=== PATIENT | female | born 1955 | race Caucasian/White ===

== ENCOUNTER 2019-05-08 09:48 | Outpatient (CLI) | payer MEDICARE, OTHER, SELFPAY ==
[2019-05-08 10:10] VITALS: BP 137/80; PULSE 79; RESP 16; TEMP 36.6; O2SAT 99
[2019-05-08] MEDS: denosumab 60 mg SDV SUBCUT (10:22)
[2019-05-08 10:27] VITALS: BP 136/81; PULSE 75; RESP 16; TEMP 36.6
== END 2019-05-08 09:49 | disposition home or self-care (01) ==
LOC: RHEOACUTE 09:50
PROVIDERS: Family Provider Internal Medicine; PCP Internal Medicine; Visit Provider Internal Medicine Rheumatology
DX: M81.0 Age-related osteoporosis without current pathological fracture (principal)
CPT/HCPCS: 96372; J0897

== ENCOUNTER → 2019-10-24 09:02 | Outpatient (BNVA) | payer MEDICARE, OTHER, SELFPAY | PROVIDERS: Family Provider Internal Medicine; PCP Internal Medicine; Visit Provider Internal Medicine Rheumatology | DX: L40.0 Psoriasis vulgaris (principal); M81.0 Age-related osteoporosis without current pathological fracture; Z79.899 Other long term (current) drug therapy; F17.210 Nicotine dependence, cigarettes, uncomplicated | CPT/HCPCS: 99203 ==

== ENCOUNTER 2019-11-07 12:45 | Outpatient (CLI) | payer MEDICARE, OTHER, SELFPAY ==
[2019-11-07 13:13] VITALS: BP 141/71; PULSE 86; RESP 16; TEMP 36.5; O2SAT 97
[2019-11-07] MEDS: denosumab 60 mg SDV (13:23)
[2019-11-07 13:30] VITALS: BP 136/88; PULSE 77; RESP 16; TEMP 36.4
== END 2019-11-07 12:46 | disposition home or self-care (01) ==
LOC: RHEOACUTE 12:46
PROVIDERS: Family Provider Internal Medicine; PCP Internal Medicine; Visit Provider Internal Medicine Rheumatology
DX: M81.0 Age-related osteoporosis without current pathological fracture (principal)
CPT/HCPCS: 96372; J0897

== ENCOUNTER → 2019-12-24 10:31 | Outpatient (BNVA) | payer MEDICARE, OTHER, SELFPAY | PROVIDERS: Family Provider Internal Medicine; PCP Internal Medicine; Referring Provider Internal Medicine Rheumatology; Visit Provider Dermatology | DX: L40.0 Psoriasis vulgaris (principal); F17.210 Nicotine dependence, cigarettes, uncomplicated | CPT/HCPCS: 99202; 99203 ==

== ENCOUNTER 2020-01-11 09:31 | Outpatient (CLI) | payer MEDICARE, OTHER, SELFPAY ==
--- NOTE | 2020-01-11 09:37 | MM_ITS ---
WS: [id number] BILATERAL SCREENING DIGITAL MAMMOGRAM WITH CAD HISTORY: SCREENING COMPARISON: 12/13/2017 Bilateral CC and MLO views submitted. Computer aided detection analyzed. Breast composition: There are scattered areas of fibroglandular density. No suspicious masses, microc alcifications or architectural distortion. Benign asymmetries and vascular calcifications. MM/[place] [id number] IMPRESSION: BI-RADS: 2-Benign FOLLOW UP: 1 Year Follow-up
== END 2020-01-11 09:32 | disposition home or self-care (01) ==
LOC: RADSHAW 09:35
PROVIDERS: PCP Internal Medicine; Visit Provider Internal Medicine
DX: Z12.31 Encounter for screening mammogram for malignant neoplasm of breast (principal)
CPT/HCPCS: 77067

== ENCOUNTER 2020-03-13 12:34 | Outpatient (CLI) | payer MEDICARE, OTHER, SELFPAY ==
--- NOTE | 2020-03-13 12:45 | USCV_ITS ---
Sabrina Bates Age: 64 Gender: F : 1955 Exam Date: 03/13/2020 12:33 Ordering Phys: Marvin Jordan DO Technologist: Angela Mireles Exam Location: [facility] – [place] Indication: REDUCED PULSES RIGHT LEFT Brachial 153.00 mmHg Brachial 138.00 mmHg Pressure (mmHg) Waveform Pressure (mmHg) Waveform 52.00 LIBRARY MEDIA SPECIALIST 42.00 62.00 DPA 44.00 0.41 Ankle/Brachial Index 0.29 FINDINGS UNABLE TO OBTAIN DOPPLER IN THE FIRST TOE BILATERALLY Resting KARIE of 0.41 on the right side and 0.29 on the left side CONCLUSIONS Abnormal resting ABIs bilaterally, suggestive of severe obstructive arterial disease, possibly multisegmental Dr Aysha Camacho MD FACC (Electronically Signed) Final Date: 14 March 2020 19:41 S
--- NOTE | 2020-03-13 12:45 | USCV_ITS ---
Sabrina Bates Age: 64 Gender: F : 1955 Exam Date: 03/13/2020 13:20 Ordering Phys: Marvin Jordan DO Technologist: Angela Mireles Exam Location: [facility] – [place] Indication: WEAKNESS AND MURMUR BP: 158 / 78 HR: 61 Rhythm: Sinus Technical Quality: Adequate MEASUREMENTS (Male / Female) Normal Values 2D ECHO LV Diastolic Diameter PLAX 2.9 cm 4.2 - 5.9 / 3.9 - 5.3 cm LV Systolic Diameter PLAX 2.1 cm LV Chamber Size 2.8 cm IVS Diastolic Thickness 1.7 cm 0.6 - 1.0 / 0.6 - 0.9 cm IVS Systolic Thickness 1.6 cm LVPW Diastolic Thickness 2.5 cm 0.6 - 1.0 / 0.6 - 0.9 cm LVPW Systolic Thickness 1.9 cm RV Chamber Size 3.1 cm LVOT Diameter 2.0 cm LV Ejection Fraction 2D Teich 58.6 % LV Ejection Fraction MOD 2C 61.9 % LV Ejection Fraction 2C AL 64.3 % LA Diameter 2.7 cm LA Width 3.3 cm LA Height 4.0 cm RA Width 3.8 cm RA Height 3.6 cm Aorta at Sinotubular Diameter 2.6 cm M-MODE LV Diastolic Diameter MM 3.8 cm 4.2 - 5.9 / 3.9 - 5.3 cm LV Systolic Diameter MM 2.7 cm LV Ejection Fraction MM Teich 57.4 % IVS Diastolic Thickness MM 1.0 cm 0.6 - 1.0 / 0.6 - 0.9 cm IVS Systolic Thickness MM 1.2 cm LVPW Diastolic Thickness MM 1.4 cm 0.6 - 1.0 / 0.6 - 0.9 cm LVPW Systolic Thickness MM 1.6 cm RV Diastolic Diameter MM 1.1 cm Aortic Annulus Diameter 3.0 cm LA Ao Ratio MM 1.0 MV E Point Septal Separation 5.1 cm DOPPLER AV Peak Velocity 214.0 cm/s LVOT Peak Velocity 154.8 cm/s AV Area Cont Eq vti 2.6 cm squared AV Area Cont Eq pk 2.3 cm squared MV Area PHT 2.8 cm squared Mitral E to A Ratio 1.1 MV E' Velocity 55.5 cm/s Mitral E to MV E' Ratio 7.6 Mitral E to LV E' Lateral Ratio 7.0 Mitral E to LV E' Septal Ratio 8.3 TR Peak Velocity 165.0 cm/s TR Peak Gradient 10.9 mmHg TR Mean Velocity 105.1 cm/s TR Mean Gradient 5.5 mmHg TR Velocity Time Integral 39.9 cm TV Peak E Velocity 67.0 cm/s Right Atrial Pressure 3.0 mmHg Pulmonary Artery Systolic Pressu 13.9 mmHg PV Peak Velocity 57.0 cm/s RV Acceleration Time 0.1 s RV Ejection Time 0.3 s RV AcT/ET 0.4 FINDINGS Left Ventricle Normal left ventricular size and systolic function, EF 62 %. Mild left ventricular hypertrophy. Right Ventricle The right ventricle is normal in size and function. Right Atrium The right atrium is normal in size. Left Atrium The left atrium is normal in size. Mitral Valve Trace mitral valve regurgitation. Aortic Valve The noncoronary cusp of the aortic arch appears to be thickened with limited mobility Tricuspid Valve No gross abnormalities noted Pulmonic Valve No gross abnormalities noted Pericardium Normal pericardium without effusion. Aorta Normal ascending aorta dimension. CONCLUSIONS Normal left ventricular size and systolic function, EF 62 %. Mild left ventricular hypertrophy. Features of aortic valve sclerosis. Trace mitral valve regurgitation. There is no pericardial effusion. There are no intracardiac masses. No previous study is available for comparison. Dr Aysha Camacho MD FACC (Electronically Signed) Final Date: 13 March 2020 21:03 S
== END 2020-03-13 12:35 | disposition home or self-care (01) ==
PROVIDERS: PCP Internal Medicine; Visit Provider Internal Medicine
DX: R01.1 Cardiac murmur, unspecified (principal); I73.9 Peripheral vascular disease, unspecified; R53.1 Weakness; I08.0 Rheumatic disorders of both mitral and aortic valves
CPT/HCPCS: 93306; 93922

== ENCOUNTER 2020-04-14 12:46 | Outpatient (CLI) | payer MEDICARE, OTHER, SELFPAY ==
--- NOTE | 2020-04-14 14:00 | CT_ITS ---
WS: [id number] CT ANGIOGRAPHY OF THE ABDOMINAL AORTA WITH RUNOFF TO THE ANKLES HISTORY: I73.9 - Peripheral vascular disease, unspecified TECHNIQUE: Arterial injection is performed during imaging to evaluate the aorta and runoff vessels to the ankles. MIP and volume rendering imaging has also been performed. All images are reviewed. All C T scans at [facility] use at least one of these dose optimization techniques: automated ex posure control; mA and/or kV adjustment per patient size (includes targeted exams where dose is match ed to clinical indication); or iterative reconstruction. Contrast: Omnipaque 350; 95 mL IV. DLP: 1307.07 mGycm COMPARISON: 03/13/2020 Chronic emphysematous changes at the lung bases. Normal size heart. Small hiatal hernia. Abdominal aorta: Extensive atherosclerotic plaque within the abdominal aorta. No aneurysm. Heavy calc ification around the distal aorta. Diameter distal aorta is 9 mm. Heavy calcified plaque at the origi n of the celiac axis with moderate stenosis. Calcified plaque near the origin of the SMA but no steno sis. Mild stenosis proximal RIGHT renal artery. No stenosis on the LEFT. RIGHT lower extremity arterial system: High-grade stenosis involving the proximal RIGHT common iliac artery. There is calcified plaque with intimal thickening. There is plaque throughout the common, int ernal and external iliac arteries. Multifocal areas of high-grade stenosis and moderate stenosis. Gre ater than 50% stenosis involving the proximal common femoral artery. Multifocal plaque with moderate to severe stenoses throughout the superficial femoral artery through the popliteal artery. Large foca l area of plaque origin of the posterior tibial artery. Three-vessel but small caliber runoff to the ankle. LEFT lower extremity arterial system: Large amount of calcified plaque with high-grade stenosis invol ving the proximal common iliac artery. High-grade and possible complete occlusion with distal reconst itution. There is extensive calcified plaque with additional area of stenosis at the bifurcation of t he common iliac artery. Heavy calcification continues into the internal and external iliac arteries a nd the femoral artery. Near complete occlusion involving the proximal superficial femoral artery. Mul tifocal areas of plaque with areas of high-grade stenosis and possible complete occlusions. Largest c alcified plaque in the popliteal artery. Plaque at the tibioperoneal trunk. Small caliber vessel runo ff to the ankle. Hemangioma RIGHT lobe of the liver measures 1.5 cm. Gallbladder is probably surgically absent. Normal size spleen. No pancreatic abnormality. No adrenal mass. Both kidneys are normally enhancing. No terry nopathy or ascites. Mild constipation. Uterus is small caliber. Bilateral tubal ligation clips. Mild anterior wedging of L4. L4 anterolisthesis by [address]/CT angio abd aorta runof [id number] IMPRESSION: 1. Severe atherosclerotic plaque throughout the abdominal aorta extending thro ugh the iliac arteries to the popliteal arteries. 2. Multifocal bilateral areas of stenosis and occlusions in the common iliac a rteries, femoral arteries and popliteal arteries. 3. Moderate stenosis distal abdominal aorta. 4. High-grade stenosis involving the proximal common iliac arteries, LEFT grea ter than RIGHT. Multifocal areas of stenosis in the common and external iliac a rteries bilaterally. 5. Moderate stenosis proximal RIGHT SFA with high-grade stenosis proximal LEFT SFA. Additional multi focal areas of stenoses throughout the superficial femor al artery and popliteal arteries. 6. Heavy calcified plaque burden at the origin of the celiac axis. Favor steno sis greater than 50%.
[2020-04-14 15:40] LABS: Blood Urea Nitrogen 10 mg/dL (8-23); Glomerular Filtration Rate 123.8 mL/min (90-130)
[2020-04-14] MEDS: iohexol 350 mg/mL 100 mL Btl IV (15:54)
== END 2020-04-14 12:47 | disposition home or self-care (01) ==
LOC: RADWPI 12:50
PROVIDERS: PCP Internal Medicine; Visit Provider Internal Medicine Cardiovascular Disease
DX: I73.9 Peripheral vascular disease, unspecified (principal); I65.29 Occlusion and stenosis of unspecified carotid artery; I70.0 Atherosclerosis of aorta; I70.8 Atherosclerosis of other arteries
CPT/HCPCS: 75635; 82565; 84520; Q9967

== ENCOUNTER 2020-05-01 14:08 | Outpatient (CLI) | payer MEDICARE, OTHER, SELFPAY ==
--- NOTE | 2020-05-01 14:15 | USCV_ITS ---
Sabrina Bates Age: 64 Gender: F : 1955 Exam Date: 05/01/2020 14:27 Ordering Phys: Klarissa Archer MD ([email or web address]) Technologist: Juan Pablo Blackmon Exam Location: [facility] [place] Indication: STENOSIS Risk Factors: Previous Vascular Surgery: Right Brachial BP: / Left Brachial BP: / Right Left Velocity (cm/s) Spectral Plaque Velocity (cm/s) Spectral Plaque Syst/Diast Broadening Syst/Diast Broadening 63.90/ 15.40 Prox CCA 76.10 / 28.70 78.30/ 23.20 Mid CCA 83.90 / 31.80 79.40/ 19.80 Distal CCA 62.90 / 10.90 77.20/ 11.00 Prox ICA 93.20 / 28.70 95.90/ 33.10 Mid ICA 109.10/ 38.10 92.60/ 36.40 Distal ICA 156.40/ 60.50 168.50 ECA 61.40 1.21 ICA/CCA 1.86 Antegrade Vertebral Antegrade 49.70/ 17.90 cm/s 57.80/ 22.30 cm/s Tri Subclavian Tri 106.4 180.1 0 0 CONCLUSIONS Right ICA stenosis <50%. Moderate atheromatous plaque right carotid bulb/ICA. Left ICA stenosis <50%. Moderate atheromatous plaque left carotid bulb/ICA. Normal antegrade Doppler flow noted in the right vertebral artery. Normal antegrade Doppler flow noted in the left vertebral artery. Laureano Loja MD (Electronically Signed) Final Date: 01 May 2020 17:03 S
== END 2020-05-01 14:09 | disposition home or self-care (01) ==
LOC: US 14:10
PROVIDERS: PCP Internal Medicine; Visit Provider Internal Medicine Cardiovascular Disease
DX: I65.23 Occlusion and stenosis of bilateral carotid arteries (principal)
CPT/HCPCS: 93880

== ENCOUNTER 2020-05-26 14:32 | Outpatient (CLI) | payer MEDICARE, OTHER, SELFPAY ==
[2020-05-26] MEDS: denosumab 60 mg SDV SUBCUT (14:49)
[2020-05-26 14:51] VITALS: BP 140/68; PULSE 69; RESP 16; TEMP 36.9; O2SAT 100
== END 2020-05-26 14:33 | disposition home or self-care (01) ==
PROVIDERS: PCP Internal Medicine; Visit Provider Internal Medicine
DX: M81.0 Age-related osteoporosis without current pathological fracture (principal)
CPT/HCPCS: 96372; J0897

== ENCOUNTER 2020-07-09 19:14 | Emergency (ER) | payer MEDICARE, OTHER, SELFPAY ==
[2020-07-09 19:27] VITALS: BP 176/74; PULSE 82; RESP 17; TEMP 36.4; O2SAT 100; BMI 21.4
[2020-07-09] MEDS: tetanus-dipt-pertussis 0.5 mL SDV IM (19:56)
--- NOTE | 2020-07-09 20:09 | ED_ITS ---
HPI - Animal Bite General: Chief Complaint: Animal Bite Stated Complaint: BARN CAT INJURIES Time Seen by Provider: 07/09/20 19:19 Source: patient Mode of arrival: ambulatory Limitations: no limitations History of Present Illness: HPI narrative: 65-year-old female patient presents to the emergency department due to cat bite she sustained to the right hand and right lower leg. She reports went out to feed the cat with the dog ran out the door causing the cat to jump on her. She reports cat is her cat, is a barn cat, she reports cat is in good health and can be observed for 10 days. complaint: animal bite Onset (ago): hour(s) (1) Description of animal: appeared well Mechanism: bite and scratch Location - Extremities: Right: hand and lower leg Pain description: sharp Context: animals fighting Associated symptoms: Reports bleeding; Deny chills, diaphoresis, fever(s) or headache(s) Treatments prior to arrival: pressure Review of Systems General: Reports: 10 or more systems reviewed and unremarkable except in HPI and below Const: Denies: fever(s), chills or diaphoresis Eyes: Denies: blurry vision or eye redness ENMT: Denies: throat pain, dental pain or disequilibrium Card: Denies: chest pain, palpitations or irregular heart rhythm Resp: Denies: dyspnea, productive cough, non-productive cough or wheezing GI: Denies: abdominal pain, nausea or vomiting : Denies: difficulty voiding or dysuria Musc: Denies: neck pain, back pain, joint pain or joint warmth Skin/Breast: Reports: erythema and skin tenderness; Denies: rash or pruritus Neuro: Denies: headache(s), weakness in extremities or behavioral changes Psych: Denies: anxiety or depression Win/Lymph: Denies: easy bruising PFSH ED PFSH: Medical History Carotid artery stenosis, asymptomatic Constipation High risk medication use Hx of thoracic outlet syndrome Osteoporosis PAD (peripheral artery disease) Plaque psoriasis Psoriasis Surgical History H/O tubal ligation Hx of appendectomy Hx of cholecystectomy Family History Other CAD (coronary artery disease) Denies family history of Rheumatoid arthritis Diabetes Lupus Hypertension Stroke Social History Smoking and tobacco status: current every day smoker cigarettes Packs smoked per day: 0.5 Alcohol intake: never Current occupational status: retired History of recent travel: No Physical Exam Const: COMMON NORMALS: no acute distress, patient oriented x3, healthy appe aring, alert and well nourished GENERAL APPEARANCE: cooperative, comfortable, well kempt, well developed and well hydrated NUTRITIONAL APPEARANCE: thin ORIENTATION/CONSCIOUSNESS: Yes awake, Yes oriented to person, Yes oriented to place and Yes oriented to time HENMT: COMMON NORMALS: normocephalic, Normal external nose present and moist oral mucous membranes HEAD & SCALP: normocephalic NOSE: Normal external nose present Eye: COMMON NORMALS: Equal, round and reactive pupils present and EOMs intact bilaterally GENERAL EYE: appearance normal, both eyes and all related structures PUPIL: Yes Equal, round and reactive pupils present Neck/C-Spine: COMMON NORMALS: full ROM and no lymphadenopathy GENERAL: Yes normal visual inspection and Yes trachea midline CERVICAL SPINE: Yes cervical ROM normal Lymph: LYMPHATIC: no lymphadenopathy noted Chest: COMMONS NORMALS: normal inspection of the chest Resp: COMMON NORMALS: normal respiratory effort and clear to auscultation bilaterally AUSCULTATION: clear to auscultation bilaterally Cardio: COMMON NORMALS: regular rhythm, S1 normal heart sound present, S2 normal heart sound present and Peripheral pulses 2+ throughout RHYTHM: regular rhythm HEART SOUNDS: S1 normal heart sound present and S2 normal heart sound present PERIPHERAL PULSES: Peripheral pulses 2+ throughout GI: COMMON NORMALS: Soft to palpation and non-tender INSPECTION: Yes normal to inspection PALPATION: Yes Soft to palpation : COMMON NORMALS: Yes no CVA tenderness BLADDER/KIDNEY EXAM: Yes no CVA tenderness Back/Pelvis: COMMON NORMALS: no CVA tenderness and thoracic and lumbar spine normal to inspection Extremity: COMMON NORMALS: normal to inspection, full ROM, capillary refill normal and no pedal edema EXTREMITY IMAGE (BACK): 1. Superficial horizontal abrasions, no bleeding 2. Puncture wound surrounded with superficial laceration, serosanguineous drainage, 1 cm Neuro: COMMON NORMALS: patient oriented x3 and no focal motor deficits SENSORIUM/ORIENTATION: Yes alert, Yes oriented to person, Yes oriented to place and Yes oriented to time GAIT: Yes Normal gait present MOTOR EXAM: 5/5 motor strength present throughout Psych: COMMON NORMALS: mental status grossly normal, Normal thought process present and cooperative APPEARANCE: Yes well kempt ACTIVITY/MOTOR BEHAVIOR: Yes appropriate eye contact THOUGHT PROCESS: Normal thought process present Skin: COMMON NORMALS: no rashes or lesions noted, turgor normal, no petechiae and no mottling GENERAL SKIN EXAM: no rashes or lesions noted and turgor normal TRAUMA: laceration (1 cm laceration to the ulnar side distal right index finger) linear, actively bleeding, superficial, motor nerve function intact and sensation intact and puncture (To the right proximal thumb, no bleeding) Course Vital Signs: Vital signs: Vital Signs Temperature 97.6 F 07/09/20 19:27 Pulse Rate 82 07/09/20 19:27 Respiratory Rate 17 07/09/20 19:27 Blood Pressure 176/74 07/09/20 19:27 Pulse Oximetry 100 07/09/20 19:27 MDM - Animal Bite MDM Narrative: Medical decision making narrative: 65-year-old female patient presents to the emergency department with cat bite and scratches to the right up per extremity and right lower extremity; cat can be observed for 10 days, cat appeared healthy and has lived with the residents for years. Rabies vaccines were discussed and encouraged, patient declined as she request to contact the vet tomorrow along with 10-day quarantine of the cat. She was advised to return to the emergency department immediately if neurological symptoms occur in the cat. Verbalized understanding. She was initiated on Augmentin will continue for 10 days, advised to monitor for signs and symptoms of infection, lacerations, abrasions and puncture wounds were cleansed with Betadine scrub. Telfa was applied along with Kerlix instructions to wash daily with soap and water and pat dry and to cover as needed for drainage. Discharge Plan Discharge Patient Disposition: Home Clinical Impression: Cat bite involving extremity Condition: Stable Prescriptions: New Augmentin 875-125 mg tablet 1 tab PO BID Qty: 20 RF: 0 No Action triamcinolone acetonide 0.1 % ointment 1 applic TOPICAL BID Qty: 453.6 RF: 1 calcipotriene 0.005 % ointment 1 applic TOPICAL DAILY Qty: 120 RF: 1 betamethasone dipropionate 0.05 % ointment 1 applic TOPICAL BID Qty: 45 RF: 2 aspirin 81 mg tablet,delayed release (DR/EC) 81 mg PO DAILY RF: 0 magnesium oxide 500 mg tablet 500 mg PO DAILY RF: 0 trazodone 100 mg tablet 100 mg PO DAILY RF: 0 Amitiza 24 mcg capsule 24 mcg PO DAILY RF: 0 Prolia 60 mg/mL syringe SUBCUT RF: 0 cilostazol 50 mg tablet 50 mg PO BID Qty: 180 RF: 2 simvastatin 10 mg tablet 10 mg PO DAILY Qty: 90 RF: 3 Discharge Orders: Discharge ED (Routine); Ordered 07/09/20 Ordered By: Sola Mendoza Referrals: Marvin Jordan DO [Primary Care Provider] - Discharge Diet: Usual diet Discharge Activity: Limit activity as instructed Patient Instructions: Diphtheria/Acellular Pertussis/Tetanus Booster Vaccine (Tdap) (Injection), Animal Bite (ED), Laceration (ED), Rabies (ED), Opioid Safety Activity Restrictions/Additional Instructions: Cleanse wounds daily with soap and water, may apply bandage to the areas of drainage occurs Make sure cat follows up with the vet tomorrow as planned, rabies vaccines may be needed Take Augmentin until gone, even if feeling better Return to the emergency department if you develop red streaking, redness of the extremity or other concerning symptoms such as fever or chills Coding Level of Care Code ED Tenant Relations Coordinator for Jeri Mittal
[2020-07-09] MEDS: amoxicillin-clav 875-125 mg Tablet 1 TAB PO (20:22)
[2020-07-09 20:25] VITALS: PULSE 86; RESP 16; O2SAT 96
== END 2020-07-09 20:27 | disposition home or self-care (01) ==
PROVIDERS: Emergency Provider Nurse Practitioner Family; PCP Internal Medicine
DX: S61.051A Open bite of right thumb without damage to nail, initial encounter (principal); S61.250A Open bite of right index finger without damage to nail, initial encounter; S81.851A Open bite, right lower leg, initial encounter; W55.01XA Bitten by cat, initial encounter; F17.210 Nicotine dependence, cigarettes, uncomplicated; Z23 Encounter for immunization
CPT/HCPCS: 90471; 90715; 99282

== ENCOUNTER 2020-08-15 12:58 | Outpatient (CLI) | payer MEDICARE, OTHER, SELFPAY | END 2020-08-15 12:59 | disposition home or self-care (01) | LOC: WOUND 12:59 | PROVIDERS: PCP Internal Medicine; Visit Provider Nurse Practitioner Family | DX: I73.9 Peripheral vascular disease, unspecified (principal); L97.812 Non-pressure chronic ulcer of other part of right lower leg with fat layer exposed | CPT/HCPCS: 11042; 87070; 87077; 87176; 87186; 87205; G0463 ==

== ENCOUNTER 2020-08-28 08:49 | Outpatient (CLI) | payer MEDICARE, OTHER, SELFPAY | END 2020-08-28 08:50 | disposition home or self-care (01) | LOC: WOUND 08:50 | PROVIDERS: PCP Internal Medicine; Visit Provider Nurse Practitioner Family | DX: I73.9 Peripheral vascular disease, unspecified (principal); L97.812 Non-pressure chronic ulcer of other part of right lower leg with fat layer exposed | CPT/HCPCS: 11042 ==

== ENCOUNTER 2020-09-04 08:37 | Outpatient (CLI) | payer MEDICARE, OTHER, SELFPAY | END 2020-09-04 08:38 | disposition home or self-care (01) | LOC: WOUND 08:40 | PROVIDERS: PCP Internal Medicine; Visit Provider Nurse Practitioner Family | DX: I73.9 Peripheral vascular disease, unspecified (principal); L97.812 Non-pressure chronic ulcer of other part of right lower leg with fat layer exposed | CPT/HCPCS: 11042 ==

== ENCOUNTER 2020-09-11 08:33 | Outpatient (CLI) | payer MEDICARE, OTHER, SELFPAY | END 2020-09-11 08:34 | disposition home or self-care (01) | LOC: WOUND 08:34 | PROVIDERS: PCP Internal Medicine; Visit Provider Nurse Practitioner Family | DX: I73.9 Peripheral vascular disease, unspecified (principal); L97.812 Non-pressure chronic ulcer of other part of right lower leg with fat layer exposed | CPT/HCPCS: 11042 ==

== ENCOUNTER → 2020-09-16 11:59 | Outpatient (BNVA) | payer MEDICARE, OTHER, SELFPAY | PROVIDERS: PCP Internal Medicine; Visit Provider Internal Medicine Cardiovascular Disease | DX: Z01.812 Encounter for preprocedural laboratory examination (principal); Z20.822 Contact with and (suspected) exposure to COVID-19 | CPT/HCPCS: 87635 ==

== ENCOUNTER 2020-09-18 08:56 | Outpatient (CLI) | payer MEDICARE, OTHER, SELFPAY | END 2020-09-18 08:57 | disposition home or self-care (01) | LOC: WOUND 08:57 | PROVIDERS: PCP Internal Medicine; Visit Provider Nurse Practitioner Family | DX: I73.9 Peripheral vascular disease, unspecified (principal); L97.812 Non-pressure chronic ulcer of other part of right lower leg with fat layer exposed | CPT/HCPCS: 11042 ==

== ENCOUNTER → 2020-09-24 08:39 | Day surgery (SDC) | payer MEDICARE, OTHER, SELFPAY ==
[2020-09-16 11:32] LABS: Basophils # 0.1 10^3/uL (0.0-0.1); Basophils % 0.7 %; Eosinophils # 0.2 10^3/uL (0.0-0.8); Eosinophils % 2.9 %; Hematocrit 41.4 % (37.0-47.0); Hemoglobin 13.7 g/dL (11.5-15.3); Lymphocytes # 3.1 10^3/uL (0.8-4.8); Lymphocytes % 37.4 %; Mean Corpuscular HGB Conc 33.1 g/dL (30.0-36.0); Mean Corpuscular Hemoglobin 32.5 pg (28.0-34.0); Mean Corpuscular Volume 98.1 fL (81-99); Mean Platelet Volume 10.5 fL (7.4-10.4); Monocytes # 0.7 10^3/uL (0.2-0.9); Monocytes % 8.7 %; Neutrophils # 4.08 10^3/uL (1.8-7.7); Neutrophils % 50.2 %; Nucleated Red Blood Cells % 0 %; Platelet Count 210 10^3/cmm (130-400); Red Blood Count 4.22 10^6/uL (4.1-5.3); Red Cell Distribution Width 12.6 % (12.1-15.1); White Blood Count 8.2 10^3/uL (4.0-10.0)
[2020-09-16 11:46] LABS: INR 0.96 (0.8-1.2)
[2020-09-16 11:54] LABS: Anion Gap 15.1 (5-19); Blood Urea Nitrogen 7 mg/dL (8-23); Calcium 9.4 mg/dL (8.5-10.5); Carbon Dioxide 27 mmol/L (22-29); Chloride 103 mmol/L (98-107); Glucose 91 mg/dL (65-115); Osmolality Calculated 290 mOsm/kg (285-295); Potassium 4.1 mmol/L (3.5-5.1); Sodium 141 mmol/L (136-145)
--- NOTE | 2020-09-24 09:00 | XACV_ITS ---
Wt: 62 kg BSA: 1.68 m2 Any Known Allergies: Other Gender: Female : 1955 Exam Type: Invasive Peripheral Vascular Procedure(s): Procedure Description: Peripheral Cath Diagnostic Procedure Procedure Description: Abdominal aortic angiography Procedure Description: Iliac arterial aortic angiography Procedure Description: Lower extremities' angiography Procedure Description: Peripheral vascular Intervention Procedure Description: PV Balloon Procedure Description: PV Stent Exam Priority: Routine Conclusions 65-year-old female past medical history significant for COPD smoking lifestyle limiting claudication critical limb ischemia of her right leg with nonhealing ulcer underwent peripheral angiogram. She was noted to have bilateral highly calcified proximal common iliac disease. She was also noted to have mid to distal right SFA calcified moderate disease and possible high-grade tibioperoneal disease on the right side which was not well visualized due to lack of contrast. I was able to cross from left common femoral into right iliac arteries all the way into right SFA. Balloon angioplasty of both iliacs were performed using 5.0x40 [place] at 4-6 VY for 2 minutes. Both lesions in bilateral common iliac were moderately dilated. I then tried to put long sheath 6 Slovenian flexor while crossing with the sheath perforation was noted in the right proximal common iliac. Immediately I tried placing a covered stent 6.0x37mm in the process of crossing the stent through proximal right common calcified lesion stent balloon slipped out of the stent and moved forward. Due to suboptimal images proximal part of the stent was not visualized and it gave the impression of as stent has crossed along with the balloon. Stent was deployed but after deployment it was realized that half of the stent which is the distal segment was inflated in the right proximal common iliac however proximal half remains not inflated and stayed in the right common proximal segment of the iliac vessel.stent was noted be pulled back from the right common into the left common iliac vessel. Through Glidewire pigtail was passed in the Aorta arnav left common illiac to perform aortogram which confirmed sealing of the perforation in the right common iliac' patient remained stable vital reed. Type crossmatch and labs were sent. I then took access through right common femoral and perform common iliac angiogram to assess the flow and to confirm the sealing of the perforation. Patient has reasonable good flow in both common iliacs however underexpanded covered stent was noted from proximal right common into the left common over the bifurcation. Protamine reversal was performed initially after perforation. Since it was sealed with a covered stent I resume heparin after 5000 units of bolus followed by 500units with ACT of 180. I discussed the case with vascular surgery at [facility] Dr. Gianfranco golden who graciously accepted the transfer with his colleagues on-call. Patient and her was explained the situation. They both agreed with the transfer through airlift to the [facility] for further intervention. I have sent CD of the imaging as well.. null was treated with Balloon and Stent. null was treated with Balloon. Recommendations Continue current medical management and risk factor modification. Follow up with PCP as directed. Hemodynamic Data Phase:Rest AO : 175.0 / 87.0 ( 117.0 ) @ 9:51:00 AM 192.0 / 96.0 ( 133.0 ) @ 10:08:00 AM 147.0 / 94.0 ( 116.0 ) @ 10:48:00 AM Access Site Site: Right Femoral artery Sheath Size: 6 Fr Hemost... Method: Suture Hemost... Success: Successful Site: Right Femoral artery Sheath Size: 4 Fr Hemost... Method: Suture Hemost... Success: Successful Procedure Details Findings Procedure Consent Obtained. Pre-Procedure Time Out. Identified patient by full name and date of as verbalized by the patient/guarantor. Does the consent match the physician's order: Yes. Accurate & Complete Informed Consent: Yes. Inpatient/Outpatient History & Physical on Chart: Yes. If H&P is completed, is and addenduem needed: No; If yes, is the addendum complete: N/A. Visualize and Verify Site with Patient/Guarantor: N/A. Relevant Radiology Images available: Yes. Pre-op teaching completed and patient verbalized understanding. The risks, benefits, and alternatives of sedation and/or procedure were discussed by physician. The patient agrees to continue. Procedure started. Correct patient, site and procedure confirmed by cath team. PERRLA. Strong, equal hand phone operator bilaterally. Lungs clear x 5 lobes. A 20 gauge IV was started in the right anticubital using aseptic technique. Pre Procedural Pulses: right dorsalis pedis was Doppled. Pre Procedural Pulses: left dorsalis pedis was 2+. Pre Procedural Pulses: bilateral posterior tibial was Doppled. Oxygen started at 2liters/min via nasal canula. bilateral groins was prepped with chloroprep then draped in the usual sterile fashion. Baseline sample Acquired. HR: 57 BPM. Equipment: Peripheral. Cardiac Cath Pack. ACIST Manifold Kit Model BT 2000. Heparinized Saline (2 units/mL), 1000 mL bag. Inventory is JJ 6F 11cm Florecita Plus Sheath. Physician notified. Physician arrived. Physician scrubbed in. Time out performed with cath team. Lidocaine 1% infiltrated to the left groin. Arterial access obtained with micropuncture set. A CORDIS 5F UF catheter 65cm was advanced over the wire and used for Abdominal aortogram with runoff. Catheter and wire out. A CORDIS 5F UF catheter 65cm was advanced over the wire and used for Abdominal aortogram. Glidewire out. Glidewire inserted. Glidewire out. Right leg runoff 10 ml for 30 ml. Glidewire inserted and parked in Right SFA. Catheter removed over the glide wire. Inflation number : 1 A AB ARMADA 35 OTW [id number] was prepped and advanced across the Common Iliac, Left , then inflated to 4 VY for 0:11 seconds. Inflation number: 2 The AB ARMADA 35 OTW [id number] was reinflated across the Common Iliac, Left, to 6 VY for 0:24 seconds. Inflation number: 1 The AB ARMADA 35 OTW [id number] was reinflated across the Proximal Common Iliac, Right, to 6 VY for 0:30 seconds. Inflation number: 2 The AB ARMADA 35 OTW [id number] was reinflated across the Proximal Common Iliac, Right, to 10 VY for 2:03 seconds. Inflation number: 3 The AB ARMADA 35 OTW [id number] was reinflated across the Common Iliac, Left, to 8 VY for 2:03 seconds. Balloon out over wire. Abdominal aortogram performed in AP @ 10 mL/sec for a total of 30 mL. Abdominal aortogram performed in AP @ 10 mL/sec for a total of 30 mL. Short 6 fr sheath exchanged for 45 cm 6 fr Flexor sheath. Inventory is CK 6 FR FLEXOR SHEATH 45CM. Attempt to call Dr Wren straight to voicemail. Lifestream 6x37mm balloon expandable stent up 8x1 min. Inflation Number : 3 A Lifestream Covered Stent -Lot Number# [id number] exp date 02/01/2023 was prepped and advanced across the Proximal Common Iliac, Right. The stent was deployed at 8 VY for 1:01 seconds. Stent balloon out over Glidewire. Standard wire inserted into aorta. UF inserted over Standard wire. Catheter removed over the standard wire. Results checked. Standard wire out. Lidocaine 1% infiltrated to the right groin. Side port of sheath attached to Normal Saline flush at KVO to maintain patency. Dr Jordan scrubbed out to call Dr Golden from [facility]. AB [place] 35 OTW [id number] balloon inserted. Not use, removed. Second Glidewire inserted. 5 fr PIG catheter inserted over Glidewire. Pt will be emergently transferred to [facility]. Lidocaine 1% infiltrated to the right groin. Alysa AGUILERA working on transfer contact info. Arterial access obtained with micropuncture set. Right Iliac runoff 10 ml for total of 30 ml. One glidewire removed from left. Long45 cm 6 fr Flexor exchanged for short 6 fr sheath in left femoral artery. AirEvac will arrive in 8 minutes. Left leg runoff through sheath 10 ml for total of 30 ml. Physician scrubbed out. ACT drawn. Results 181 seconds. Therapeutic limits - pre-heparin administration 90-150 seconds and monitoring heparin during a vascular procedure >250 seconds. A Suture was successful obtaining hemostatsis at the Right Femoral artery insertion site. A Suture was successful obtaining hemostatsis at the Right Femoral artery insertion site. Sheath(s) sutured into position with 2-0 silk and sterile 4x4's and Op-site applied over the site. No oozing or signs and symptoms of hematoma noted. Arterial sheath flushed and connected to tranducer and pressure bag with heparinized saline. A 20 gauge IV was started in the left anticubital using aseptic technique. A 16Fr perez catheter was inserted without resistance maintaining sterile technique. Bag to gravity with clear urine returning. PERRLA. Strong, equal hand phone operator bilaterally. No VTE prophylaxis required. Medication's Wasted: Lidocaine 1% = 10 mL. Medication's Wasted: Heparin = 2000 units. Total IV fluids: 200 mL. Contrast type used: Visipaque 320 mgI/mL, 500 mL bottle. Airac arrived. Estimated blood loss: 5mL-10mL. Procedure completed. Patient transferred by bed to [facility]. Vital chart was stopped. Procedure Medications Start: 10:39 AM Stop: 10:39 AM Medication: Versed Amount: 1 mg Route: I.V. Start: 10:39 AM Stop: 10:39 AM Medication: Fentanyl Amount: 50 mcg Route: I.V. Start: 11:00 AM Stop: 11:00 AM Medication: Heparin Amount: 5000 units Route: I.V. Start: 11:07 AM Stop: 11:07 AM Medication: Versed Amount: 1 mg Route: I.V. Start: 11:07 AM Stop: 11:07 AM Medication: Fentanyl Amount: 50 mcg Route: I.V. Start: 11:16 AM Stop: 11:16 AM Medication: Protamine Amount: 50 mg Route: I.V. Start: 11:40 AM Stop: 11:40 AM Medication: Heparin Amount: 5000 units Route: I.V. Start: 11:41 AM Stop: 11:41 AM Medication: Heparin Amount: 500 units/hr Route: I.V. I, the attending physician, have reviewed and verified all procedure medications. Yes, all medications given per verbal order History/Risk Factors Hypertension: No Dyslipidemia: Yes Peripheral Arterial Disease (PAD): Yes Obesity: No Renal Disease: No Prior Interventions PCI: No CABG: No Valve Surgery: No Report Signatures Finalized by Seb Jordan MD on 10/07/2020 07:43 PM
--- NOTE | 2020-09-24 09:15 | P.HP_ITS ---
Same Day Surgery H&P Indication for Procedure/HPI DATE OF PROCEDURE: September 24, 2020 CHIEF COMPLAINT/INDICATIONFOR SURGICAL PROCEDURE: Lifestyle limiting claudication with abnormal CTA nonhealing ulcer of right leg PREOP DIAGNOSIS: Lifestyle limiting claudication with abnormal CTA and nonhealing ulcer PLANNED PROCEDRUE: Operation Date: 09/24/20 10:00 Proposed Procedures p Peripheral Diagnostic [id number] I73.9(Right) - Seb Jordan MD 65-year-old female patient of Dr. Vanegas has been referred to us for peripheral angiogram. Patient has been smoker for long. Time history of hypertension hyperlipidemia carotid artery disease has nonhealing ulcer of right leg underwent CTA with runoff suggestive of bilateral iliac SFA moderate to high- grade stenosis. Patient is complaining of lifestyle limiting claudication cannot walk more than 100 feet and uphill. She has nonhealing ulcer of the right leg. It is the reason she has been scheduled to undergo peripheral angiogram and intervention is required. Patient has been explained all risk benefit and alternative for the procedure by myself. Patient has been explained the risk for thromboembolic occlusion of arterial bed during the procedure requiring urgent emergent surgery damage to the nerve or muscles major minor bleed and and worse case scenario amputation. She would like to proceed with it. CT/CT angio abd aorta runof [id number] IMPRESSION: 1. Severe atherosclerotic plaque throughout the abdominal aorta extending through the iliac arteries to the popliteal arteries. 2. Multifocal bilateral areas of stenosis and occlusions in the common iliac arteries, femoral arteries and popliteal arteries. 3. Moderate stenosis distal abdominal aorta. 4. High-grade stenosis involving the proximal common iliac arteries, LEFT greater than RIGHT. Multifocal areas of stenosis in the common and external iliac arteries bilaterally. 5. Moderate stenosis proximal RIGHT SFA with high-grade stenosis proximal LEFT SFA. Additional multi focal areas of stenoses throughout the superficial femoral artery and popliteal arteries. 6. Heavy calcified plaque burden at the origin of the celiac axis. Favor stenosis greater than 50%. Medications/Allergies* Home Medications Medication Instructions Recorded Confirmed Type denosumab 60 mg/mL subcutaneous SUBCUT 09/10/19 07/24/20 History syringe trazodone 100 mg tablet 50 mg PO DAILY 09/10/19 09/23/20 History aspirin 81 mg chewable tablet 81 mg PO DAILY 08/29/20 09/23/20 History Allergies/Adverse Reactions Allergy/AdvReac Type Severity Reaction Status Date / Time prochlorperazine Allergy locks jaw Verified 08/29/20 12:24 [From Compazine] Pertinent History/Comorbid Conditions* Medical History (Updated 07/17/20 @ 00:01 by ) Carotid artery stenosis, asymptomatic Constipation High risk medication use Hx of thoracic outlet syndrome Osteoporosis PAD (peripheral artery disease) Plaque psoriasis Psoriasis Surgical History (Updated 09/14/19 @ 22:34 by Wilver Farmer DPM) H/O tubal ligation Hx of appendectomy Hx of cholecystectomy Family History (Updated 04/02/20 @ 13:15 by Rosalinda Bishop RN) CAD (coronary artery disease) Denies family history of Rheumatoid arthritis Diabetes Lupus Hypertension Stroke Social History Smoking and tobacco status: current every day smoker cigarettes Packs smoked per day: 0.5 Alcohol intake: never Current occupational status: retired History of recent travel: No Pertinent Exam Findings alert, oriented x 3 and clear to auscultation bilaterally Conscious Sedation Assessment PATIENT ASSESSED PRIOR TO SEDATION, WITH NO CHANGE NOTED: Yes AIRWAY EVAL/ANESTHESIA PLAN: ASA II and Risks, benefits & alternatives of sedation and/or procedure discussed Related Problem List Diagnoses (1) PAD (peripheral artery disease): Recommendations Surgery/Procedure today Coding Level of Care Code Acute Hereditary Cancer Program Coordinator for Jeri Mittal Diagnoses PAD (peripheral artery disease) I73.9
[2020-09-24 09:34] VITALS: BP 148/78; PULSE 75; RESP 18; TEMP 36.8; O2SAT 100; BMI 23.3
[2020-09-24] MEDS: diphenhydrAMINE 50 mg Capsule PO (09:41)
--- NOTE | 2020-09-24 13:01 | P.TS_ITS ---
Transfer Summary Providers Date of Discharge: 09/24/20 Attending Provider at Transfer: Seb Jordan MD Primary Care Provider: Marvin Jordan DO Anticipated Date of Transfer: Anticipated date of transfer: 09/24/20 Receiving Facility & Provider: Receiving Provider: [] Receiving facility: [] Diagnoses at Discharge Discharge Diagnosis (1) PAD (peripheral artery disease): Status: Acute Reason for Visit Reason for Visit: pvd Hospital Course Hospital Course 65-year-old female past medical history significant for COPD smoking lifestyle limiting claudication critical limb ischemia of her right leg with nonhealing ulcer underwent peripheral angiogram. She was noted to have bilateral highly calcified proximal common iliac disease. She was also noted to have mid to distal right SFA calcified moderate disease and possible high-grade tibioperoneal disease on the right side which was not well visualized due to lack of contrast. I was able to cross from left common femoral into right iliac arteries all the way into right SFA. Balloon angioplasty of both iliacs were performed using 5.0x40 [place] at 4-6 VY for 2 minutes. Both lesions in bilateral common iliac were moderately dilated. I then tried to put long sheath 6 Faroese flexor while crossing with the sheath perforation was noted in the right proximal common iliac. Immediately I placed a covered stent 6.0x37 due to possible movement of the patient or in the process of applying stent was noted be pulled back from the right common into the left common and appeared to be unexpanded in the left common iliac. Through Glidewire I performed aortogram which confirmed sealing of the perforation in the right common iliac patient remained stable blood pressure and heart rate reed. Type crossmatch and labs were sent. I then took access through right common femoral and perform common iliac angiogram to assess the flow and to confirm the sealing of the perforation. Patient has reasonable good flow in both common iliacs however underexpanded covered stent was noted from proximal right common into the left common over the bifurcation. Protamine reversal was performed initially after perforation. Since it was sealed with a covered stent I resume heparin after 5000 units of bolus followed by 500units with ACT of 180. I discussed the case with vascular surgery at [facility] Dr. Gianfranco golden who graciously accepted the transfer with his colleagues on-call. Patient and her was explained the situation. They both agreed with the transfer through airlift to the [facility] for further intervention. I have sent CD of the imaging as well. TS Data Data Completed and Pending: Pending at discharge Category Date Time Status ACCOUNTING RECONCILIATION CLERK request for service Routin e Exams 09/24/20 09:00 Ordered Antibody Identifi cation Stat Lab 09/24/20 11:26 Results Retype for Patiet s ABO/Rh Routine Lab 09/24/20 12:12 Ordered Type and Screen S tat Lab 09/24/20 11:26 Results Labs from last 24 hours 09/24/20 11:26 Blood Type A Positive Rho(D) Type Positive / 4+ Antibody Screen Positive Antibody Identific ation Pending Vitals: Last Vital Signs Temp 98.2 F 09/24/20 09:34 Pulse 75 09/24/20 09:34 Resp 18 09/24/20 09:34 BP 148/78 09/24/20 09:34 Pulse Ox 100 09/24/20 09:34 TS Medications Medications Home Medications denosumab 60 mg/mL subcutaneous syringe SUBCUT 09/10/19 [History Confirmed 07/24/20] trazodone 100 mg tablet 50 mg PO DAILY 09/10/19 [History Confirmed 09/23/20] triamcinolone acetonide 0.1 % topical ointment 1 applic TOPICAL BID #453.6 gm 08/27/20 [Rx Confirmed 09/24/20] aspirin 81 mg chewable tablet 81 mg PO DAILY 08/29/20 [History Confirmed 09/23/20] cilostazol 100 mg tablet 100 mg PO BID #180 tab 08/29/20 [Rx Confirmed 09/23/20] simvastatin 20 mg tablet 20 mg PO DAILY #90 tab 08/29/20 [Rx Confirmed 09/23/20] Active Medications Sodium Chloride (Sodium Chloride 0.9%) 1,000 mls @ 50 mls/hr IV .Q20H ONE Stop: 09/25/20 04:59 Last Admin: 09/24/20 09:41 Dose: Not Given Documented by: Discharge Plan Discharge Prescriptions: No Action trazodone 100 mg tablet 50 mg PO DAILY RF: 0 Prolia 60 mg/mL syringe SUBCUT RF: 0 aspirin 81 mg tablet,chewable 81 mg PO DAILY RF: 0 simvastatin 20 mg tablet 20 mg PO DAILY Qty: 90 RF: 3 cilostazol 100 mg tablet 100 mg PO BID Qty: 180 RF: 2 triamcinolone acetonide 0.1 % ointment 1 applic TOPICAL BID Qty: 453.6 RF: 1 Transfer Attestations Time Spent in Transfer Care*: greater than 30 min Quality Metrics Clinical Quality Measures: During this hospital stay, did patient experience: None Coding Level of Care Code Acute Casing Builder for Chg Fwd Diagnoses PAD (peripheral artery disease) I73.9
== END ==
PROVIDERS: PCP Internal Medicine; Visit Provider Internal Medicine Cardiovascular Disease
DX: I70.218 Atherosclerosis of native arteries of extremities with intermittent claudication, other extremity (principal); J44.9 Chronic obstructive pulmonary disease, unspecified; F17.210 Nicotine dependence, cigarettes, uncomplicated; L97.819 Non-pressure chronic ulcer of other part of right lower leg with unspecified severity; M81.0 Age-related osteoporosis without current pathological fracture; Z82.49 Family history of ischemic heart disease and other diseases of the circulatory system
CPT/HCPCS: 36415; 37221; 75625; 75710; 80048; 85025; 85347; 85610; 86850; 86900; C1725; C1769; C1874; C1887; C1894; J1644; J2250; J2720; J3010; J7030; Q0163; Q9967

== ENCOUNTER 2020-10-02 08:43 | Outpatient (CLI) | payer MEDICARE, OTHER, SELFPAY | END 2020-10-02 08:44 | disposition home or self-care (01) | LOC: WOUND 08:44 | PROVIDERS: PCP Internal Medicine; Visit Provider Nurse Practitioner Family | DX: I73.9 Peripheral vascular disease, unspecified (principal); L97.812 Non-pressure chronic ulcer of other part of right lower leg with fat layer exposed | CPT/HCPCS: 11042 ==

== ENCOUNTER 2020-10-09 08:56 | Outpatient (CLI) | payer MEDICARE, OTHER, SELFPAY | END 2020-10-09 08:57 | disposition home or self-care (01) | LOC: WOUND 08:57 | PROVIDERS: PCP Internal Medicine; Visit Provider Nurse Practitioner Family | DX: I87.2 Venous insufficiency (chronic) (peripheral) (principal); L97.812 Non-pressure chronic ulcer of other part of right lower leg with fat layer exposed | CPT/HCPCS: 11042 ==

== ENCOUNTER 2020-10-23 08:56 | Outpatient (CLI) | payer MEDICARE, OTHER, SELFPAY | END 2020-10-23 08:57 | disposition home or self-care (01) | LOC: WOUND 08:57 | PROVIDERS: PCP Internal Medicine; Visit Provider Nurse Practitioner Family | DX: I73.9 Peripheral vascular disease, unspecified (principal); L97.812 Non-pressure chronic ulcer of other part of right lower leg with fat layer exposed | CPT/HCPCS: 11042 ==

== ENCOUNTER 2020-10-30 08:54 | Outpatient (CLI) | payer MEDICARE, OTHER, SELFPAY | END 2020-10-30 08:55 | disposition home or self-care (01) | LOC: WOUND 08:56 | PROVIDERS: PCP Internal Medicine; Visit Provider Nurse Practitioner Family | DX: I73.9 Peripheral vascular disease, unspecified (principal); L97.812 Non-pressure chronic ulcer of other part of right lower leg with fat layer exposed | CPT/HCPCS: 97597 ==

== ENCOUNTER 2020-11-13 09:19 | Outpatient (CLI) | payer MEDICARE, OTHER, SELFPAY | END 2020-11-13 09:20 | disposition home or self-care (01) | LOC: WOUND 09:20 | PROVIDERS: PCP Internal Medicine; Visit Provider Nurse Practitioner Family | DX: Z09 Encounter for follow-up examination after completed treatment for conditions other than malignant neoplasm (principal) | CPT/HCPCS: 99212 ==

== ENCOUNTER 2020-11-25 09:35 | Outpatient (CLI) | payer MEDICARE, OTHER, SELFPAY ==
[2020-11-25 09:53] VITALS: BP 142/65; PULSE 63; RESP 18; TEMP 36.8; O2SAT 100
[2020-11-25] MEDS: denosumab 60 mg SDV SUBCUT (10:07)
== END 2020-11-25 09:36 | disposition home or self-care (01) ==
LOC: ONCMED 09:39
PROVIDERS: PCP Internal Medicine; Referring Provider Internal Medicine; Visit Provider Internal Medicine
DX: M81.0 Age-related osteoporosis without current pathological fracture (principal); Z79.899 Other long term (current) drug therapy
CPT/HCPCS: 96372; J0897

== ENCOUNTER 2021-06-03 09:19 | Outpatient (CLI) | payer MEDICARE, OTHER, SELFPAY ==
[2021-06-03 09:43] VITALS: BP 144/83; PULSE 66; RESP 18; TEMP 36.8; O2SAT 99
[2021-06-03] MEDS: denosumab 60 mg SDV SUBCUT (09:49)
[2021-06-03 09:57] VITALS: BP 149/84; PULSE 85; RESP 18; TEMP 36.7; O2SAT 99
== END 2021-06-03 09:20 | disposition home or self-care (01) ==
PROVIDERS: PCP Internal Medicine; Referring Provider Internal Medicine; Visit Provider Internal Medicine Medical Oncology
DX: M81.0 Age-related osteoporosis without current pathological fracture (principal)
CPT/HCPCS: 96372; J0897

== ENCOUNTER → 2021-08-20 13:36 | Outpatient (BNVA) | payer MEDICARE, OTHER, SELFPAY | PROVIDERS: PCP Internal Medicine; Visit Provider Internal Medicine Cardiovascular Disease | DX: I73.9 Peripheral vascular disease, unspecified (principal); I65.29 Occlusion and stenosis of unspecified carotid artery; E78.5 Hyperlipidemia, unspecified; M81.0 Age-related osteoporosis without current pathological fracture; L40.0 Psoriasis vulgaris; F17.210 Nicotine dependence, cigarettes, uncomplicated | CPT/HCPCS: 99214 ==

== ENCOUNTER 2021-08-26 07:20 | Outpatient (CLI) | payer MEDICARE, OTHER, SELFPAY ==
--- NOTE | 2021-08-26 07:28 | MM_ITS ---
WS: [id number] BILATERAL SCREENING DIGITAL BREAST TOMOSYNTHESIS MAMMOGRAM WITH CAD HISTORY: SCREENING COMPARISON: 01/11/2020, 12/13/2017 Bilateral CC and MLO views with tomosynthesis and synthetic mammography submitted. Computer aided det ection analyzed. Breast composition: There are scattered areas of fibroglandular density. No suspicious masses, microc alcifications or architectural distortion. Benign bilateral calcifications. Breast arterial calcifica tions. MM/[place] [id number] IMPRESSION: BI-RADS: 2-Benign FOLLOW UP: 1 Year Follow-up
== END 2021-08-26 07:21 | disposition home or self-care (01) ==
LOC: RAD 07:22
PROVIDERS: PCP Internal Medicine; Visit Provider Internal Medicine
DX: Z12.31 Encounter for screening mammogram for malignant neoplasm of breast (principal)
CPT/HCPCS: 77063; 77067

== ENCOUNTER 2021-09-08 07:13 | Outpatient (CLI) | payer MEDICARE, OTHER, SELFPAY ==
--- NOTE | 2021-09-08 07:45 | USCV_ITS ---
Sabrina Bates Age: 66 Gender: F : 1955 Exam Date: 09/08/2021 07:32 Ordering Phys: Klarissa Archer MD ([email or web address]) Technologist: CRISTINA Exam Location: [facility] [place] Indication: PAD Risk Factors: Previous Vascular Surgery: RIGHT LEFT BP: 140.0 / 80.00 BP: 144.0/ 81.00 0 0 Waveform Velocity (cm/s) Velocity (cm/s) Waveform Biphasic 136.3 Iliac Prox 172.9 Monophasic Biphasic 187.8 Iliac Mid 130.8 Monophasic Biphasic 131.6 Iliac Distal 156.9 Monophasic Biphasic 91.6 GREENSTONE POLISHER OPERATOR 142.2 Monophasic Monophasic 95.0 SFA Prox 89.5 Monophasic Monophasic 104.1 SFA Mid 74.3 Monophasic Monophasic SFA Dist Monophasic 50.9 21.4 Monophasic 121.9 POP 24.5 Monophasic Monophasic 27.5 LAW FIRM PARTNER 15.7 Monophasic Monophasic 29.4 DPA 13.3 Monophasic 0.7 KARIE 0.6 FINDINGS Moderate diffuse plaques in the iliac and femoral arteries bilaterally Resting KARIE of 0.7 on the right and 0.6 on the left side CONCLUSIONS 1. Abnormal resting ABIs bilaterally, suggesting moderate peripheral artery disease 2. Moderate diffuse plaques in the iliac and femoral arteries bilaterally. Consider exercise KARIE, to better evaluate the functional status, if clinically indicated Dr Aysha Camacho MD FACC (Electronically Signed) Final Date: 09 September 2021 09:30 S
== END 2021-09-08 07:14 | disposition home or self-care (01) ==
LOC: RAD 07:16
PROVIDERS: PCP Internal Medicine; Visit Provider Internal Medicine Cardiovascular Disease
DX: I73.9 Peripheral vascular disease, unspecified (principal)
CPT/HCPCS: 93925

== ENCOUNTER 2021-12-09 08:39 | Outpatient (CLI) | payer MEDICARE, OTHER, SELFPAY ==
[2021-12-09 08:56] VITALS: BP 138/66; PULSE 69; RESP 18; TEMP 36.5; O2SAT 99
[2021-12-09] MEDS: denosumab 60 mg SDV SUBCUT (09:08)
[2021-12-09 09:19] VITALS: BP 134/65; PULSE 64; RESP 18; TEMP 36.6; O2SAT 99
== END 2021-12-09 08:40 | disposition home or self-care (01) ==
PROVIDERS: PCP Internal Medicine; Visit Provider Internal Medicine
DX: M81.0 Age-related osteoporosis without current pathological fracture (principal)
CPT/HCPCS: 96372; J0897

== ENCOUNTER → 2022-02-01 13:29 | Outpatient (BNVA) | payer MEDICARE, OTHER, SELFPAY | PROVIDERS: PCP Internal Medicine; Visit Provider Internal Medicine Cardiovascular Disease | DX: I73.9 Peripheral vascular disease, unspecified (principal); F17.210 Nicotine dependence, cigarettes, uncomplicated | CPT/HCPCS: 99214 ==

== ENCOUNTER 2022-07-22 09:03 | Oncology outpatient (recurring) (ONCR) | payer MEDICARE, OTHER, SELFPAY ==
[2022-07-22 09:09] VITALS: BP 124/78; PULSE 78; RESP 18; TEMP 36.4; O2SAT 98
[2022-07-22] MEDS: denosumab 60 mg SDV SUBCUT (09:09)
== END 2022-08-01 23:59 | disposition home or self-care (01) ==
PROVIDERS: PCP Internal Medicine; Visit Provider Internal Medicine
DX: M81.0 Age-related osteoporosis without current pathological fracture (principal)
CPT/HCPCS: 96372; J0897

== ENCOUNTER 2022-07-23 12:33 | Outpatient (CLI) | payer MEDICARE, OTHER, SELFPAY ==
--- NOTE | 2022-07-23 12:50 | CT_ITS ---
WS: [id number] CT ANGIOGRAM CEREBRAL AND CAROTID ARTERIES HISTORY: TRANSIENT CEREBRAL ISCHEMIC ATTACK TECHNIQUE: Noncontrast CT head. CT angiogram is performed of the carotid and cerebral arteries. Durin g arterial injection imaging is obtained from the skull vertex to the aortic arch in 1.25 mm imaging. Coronal and sagittal reformats are submitted. Additional multi planar reformats of the carotid and c erebral arteries are submitted, MIP imaging also reviewed. NASCET criteria utilized. All CT scans at [facility] use at least one of these dose optimization techniques: automated exposure control ; mA and/or kV adjustment per patient size (includes targeted exams where dose is matched to clinical indication); or iterative reconstruction. CONTRAST: Omnipaque 350; 100 mL IV. DLP: 1187.55 mGy.cm COMPARISON: Neck CT 10/10/[address] head: No acute intracranial hemorrhage or edema. Mild atrophy predominantly within the frontal lobes. No areas of sulcal effacement. No prior infarct. Mild cerebellar atrophy. Carotid Angiogram: Right carotid: Common carotid artery: Proximal carotid artery is obscured by motion. Mid to distal carotid is normal . Internal carotid artery: Moderate plaque at the bifurcation. Stenosis estimated near 50%. External carotid artery: Patent. Left carotid: Common carotid artery: Proximal carotid artery is obscured by motion artifact. Intimal thickening but no high-grade stenosis Internal carotid artery: Heavy calcified plaque at the bifurcation narrowing the lumen. Stenosis calc ulated at 50-60%. External carotid artery: Patent. Right vertebral artery: Unremarkable. Left vertebral artery: Small caliber LEFT vertebral artery but it is patent. Subclavian arteries: Calcified plaque and mild thrombus in the proximal subclavian arteries. Upper thorax: RIGHT upper lobe nodule with biapical pleural thickening. The RIGHT upper lobe nodule w as also present in 2016 with only mild increase in size. Thyroid gland: Normal. Osseous structures: C4 anterolisthesis by 3 mm. Fusion across the C5-6 disc. CEREBRAL ANGIOGRAM: Intracranial vertebral arteries: RIGHT vertebral artery is dominant. Both vertebral arteries are dockery nt. Basilar artery: No significant stenosis or occlusion. No aneurysm. Intracranial Internal carotid arteries: Scattered plaque through the cavernous sinuses. Stenosis héctor mated near 60% bilaterally in the distal carotid arteries. Middle cerebral arteries: Normal. Anterior cerebral arteries and ACOM: Normal. Posterior cerebral arteries and PCOM's: Normal. Dural venous sinuses are normally enhancing. Mastoid air cells: Normal. Paranasal sinuses: Normal. Calvarium: Normal. CT/CT angio headneck* [id number] IMPRESSION: 1. RIGHT cervical carotid artery stenosis 50%. 2. LEFT cervical carotid artery stenosis 50-60%. 3. Scattered plaque through the cavernous sinuses. Estimated stenosis 60% bila teral.
[2022-07-23 14:02] LABS: Blood Urea Nitrogen 7 mg/dL (8-23); Glomerular Filtration Rate 71.3 mL/min (90-130)
[2022-07-23] MEDS: iohexol 350 mg/mL 500 mL Btl (per mL) IV (14:02)
== END 2022-07-23 12:34 | disposition home or self-care (01) ==
LOC: RAD 12:40
PROVIDERS: PCP Physician Assistant; Visit Provider Physician Assistant
DX: G45.9 Transient cerebral ischemic attack, unspecified (principal); I65.23 Occlusion and stenosis of bilateral carotid arteries
CPT/HCPCS: 70496; 70498; 82565; 84520; Q9967

== ENCOUNTER 2022-08-13 10:48 | Outpatient (CLI) | payer MEDICARE, OTHER, SELFPAY ==
--- NOTE | 2022-08-13 11:00 | USCV_ITS ---
Paulo Sabrina Age: 67 Gender: F : 1955 Exam Date: 08/13/2022 11:08 Ordering Phys: Violette Molina Technologist: Angela Mireles [place] [facility] [place]: TIA BP: 126 / 70 HR: 63 Rhythm: Sinus Technical Quality: Adequate MEASUREMENTS (Male / Female) Normal Values 2D ECHO LV Diastolic Diameter PLAX 4.9 cm 4.2 - 5.9 / 3.9 - 5.3 cm LV Systolic Diameter PLAX 3.9 cm LV Chamber Size 4.5 cm IVS Diastolic Thickness 0.8 cm 0.6 - 1.0 / 0.6 - 0.9 cm IVS Systolic Thickness 0.9 cm LVPW Diastolic Thickness 1.1 cm 0.6 - 1.0 / 0.6 - 0.9 cm LVPW Systolic Thickness 1.3 cm RV Chamber Size 2.5 cm LVOT Diameter 2.0 cm LV Ejection Fraction 2D Teich 43.4 % LV Ejection Fraction MOD 2C 58.7 % LV Ejection Fraction 2C AL 62.1 % LA Diameter 3.3 cm LA Width 3.5 cm LA Height 3.7 cm RA Width 3.4 cm RA Height 3.2 cm Aorta at Sinotubular Diameter 2.6 cm IVC Diameter 1.8 cm M-MODE Aortic Annulus Diameter 3.1 cm LA Ao Ratio MM 1.2 MV E Point Septal Separation 0.6 cm DOPPLER AV Peak Velocity 200.0 cm/s LVOT Peak Velocity 75.7 cm/s AV Area Cont Eq vti 1.2 cm squared AV Area Cont Eq pk 1.2 cm squared MV Peak Velocity 130.0 cm/s MV Area PHT 3.0 cm squared Mitral E to A Ratio 0.9 MV E' Velocity 45.5 cm/s Mitral E to MV E' Ratio 7.8 Mitral E to LV E' Lateral Ratio 8.4 Mitral E to LV E' Septal Ratio 7.3 TR Peak Velocity 167.7 cm/s TR Peak Gradient 11.2 mmHg TR Mean Velocity 125.8 cm/s TR Mean Gradient 7.0 mmHg TR Velocity Time Integral 47.2 cm Right Atrial Pressure 3.0 mmHg Pulmonary Artery Systolic Pressu 14.2 mmHg RV Acceleration Time 0.3 s RV Ejection Time 0.2 s RV AcT/ET 2.0 FINDINGS Left Ventricle Normal left ventricular size and systolic function, EF 56 %. No regional wall motion abnormalities. Mild left ventricular hypertrophy. Grade I/IV diastolic dysfunction (abnormal relaxation filling pattern), normal to mildly elevated filling pressures. Right Ventricle The right ventricle is normal in size and function. Right Atrium The right atrium is normal in size. Left Atrium The left atrium is normal in size. Mitral Valve Mild mitral valve regurgitation. Aortic Valve Thickened aortic valve. Aortic valve sclerosis. Tricuspid Valve Trace tricuspid valve regurgitation. Estimated pulmonary artery peak systolic pressure 14 mmHg Pulmonic Valve Pulmonic valve not well visualized. Pericardium Normal pericardium without effusion. Aorta Normal ascending aorta dimension. IVC Normal inferior vena cava. CONCLUSIONS Normal left ventricular size and systolic function, EF 56 %. No regional wall motion abnormalities. Mild left ventricular hypertrophy. Grade I/IV diastolic dysfunction (abnormal relaxation filling pattern), normal to mildly elevated filling pressures. Mild mitral valve regurgitation. Features of aortic valve sclerosis Trace tricuspid valve regurgitation. Estimated pulmonary artery peak systolic pressure 14 mmHg. There is no pericardial effusion. There are no intracardiac masses. Compared to the study from 03/13/2020, there may not be a significant change Dr Aysha Camacho MD FACC (Electronically Signed) Final Date: 20 Aug 2022 07:04 S
== END 2022-08-13 10:49 | disposition home or self-care (01) ==
LOC: RAD 10:51
PROVIDERS: PCP Physician Assistant; Visit Provider Physician Assistant
DX: G45.9 Transient cerebral ischemic attack, unspecified (principal); I34.0 Nonrheumatic mitral (valve) insufficiency
CPT/HCPCS: 93306

== ENCOUNTER → 2022-09-10 09:13 | Outpatient (BNVA) | payer MEDICARE, OTHER, SELFPAY | PROVIDERS: PCP Physician Assistant; Visit Provider Nurse Practitioner Family | DX: I65.23 Occlusion and stenosis of bilateral carotid arteries (principal); F17.210 Nicotine dependence, cigarettes, uncomplicated | CPT/HCPCS: 99213; 99214 ==

== ENCOUNTER 2022-10-05 02:39 | Emergency (ER) | payer MEDICARE, OTHER, SELFPAY ==
[2022-10-05] VITALS (13 sets, daily range): BP systolic 88–152; BP diastolic 59–126; PULSE 55–63; RESP 18; TEMP 36.7; O2SAT 96–100; BMI 23.3
--- NOTE | 2022-10-05 02:49 | W.ED.WEAKNES ---
HPI - Weakness General: Chief complaint: Weakness Stated complaint: generalized weakness Time Seen by Provider: 10/05/22 02:49 History of Present Illness: Ms. Bates is a 67-year-old lady presented the emergency department due to syncopal episode. She reports being at her baseline health and got up to go the bathroom. She felt lightheaded and hot and subsequently does not remember anything until her was waking her up. Denies frequent episodes of syncope in the past. No medication changes. Denies focal symptoms. No other specific changes in health, exacerbating, or alleviating factors identified. Onset (ago): minute(s) Associated symptoms: Reports no associated symptoms and syncope Review of Systems General: Reports: 10 or more systems reviewed and unremarkable except in HPI and below Card: Reports: syncope PFSH ED PFSH: Medical History Carotid artery stenosis, asymptomatic Constipation High risk medication use Hx of thoracic outlet syndrome Osteoporosis PAD (peripheral artery disease) Plaque psoriasis Psoriasis Surgical History H/O tubal ligation Hx of appendectomy Hx of cholecystectomy Family History Other CAD (coronary artery disease) Social History Smoking and tobacco status: current every day smoker cigarettes Packs smoked per day: 0.5 Alcohol intake: never Substance/Drug Use: never Current occupational status: retired Physical Exam Const: COMMON NORMALS: patient oriented x3 and alert GENERAL APPEARANCE: cooperative and well developed HENMT: COMMON NORMALS: normocephalic and atraumatic HEAD & SCALP: normocephalic and atraumatic THROAT: posterior oropharynx normal Eye: COMMON NORMALS: conjunctivae normal CONJUNCTIVA: Yes conjunctivae normal SCLERA: sclerae normal Neck/C-Spine: COMMON NORMALS: supple GENERAL: Yes trachea midline Resp: COMMON NORMALS: normal respiratory effort and clear to auscultation bilaterally EFFORT & INSPECTION: Yes able to speak in complete sentences AUSCULTATION: clear to auscultation bilaterally Cardio: COMMON NORMALS: regular rate and regular rhythm RATE: regular rate RHYTHM: regular rhythm GI: COMMON NORMALS: Soft to palpation PALPATION: Yes Soft to palpation and No Tenderness to palpation present (GI) Extremity: GENERAL: Yes normal exam except as noted and No edema Neuro: COMMON NORMALS: patient oriented x3, CN's II-XII intact bilaterally, moves all extremities, no focal motor deficits and no sensory deficits noted SENSORIUM/ORIENTATION: Yes alert and No Orientation impaired Psych: COMMON NORMALS: mental status grossly normal and Normal thought process present THOUGHT PROCESS: Normal thought process present Course Vital Signs: Vital signs: Vital Signs Temperature 98.1 F 10/05/22 02:41 Pulse Rate 63 10/05/22 06:31 Respiratory Rate 18 10/05/22 06:31 Blood Pressure 152/126 10/05/22 06:31 Pulse Oximetry 98 10/05/22 06:31 Oxygen Delivery Me thod Room Air 10/05/22 03:00 MDM - Weakness Medical Decision Making 67-year-old lady presenting with syncopal episode. Preceded by warm feeling and diaphoresis. No reported trauma. Patient is nontoxic, no meningismus, no focal deficits. EKG demonstrates sinus bradycardia with nonspecific ST segment abnormalities, no STEMI. Labs with essentially unremarkable hematologic and metabolic panel. Negative range delta troponin. No UTI. Elevated TSH with normal free T4. Chest x-ray with no lobar consolidation or pneumothorax. CT with no evidence of mass or hemorrhage. Patient had CTA on 07/23/2022 of the head and neck shows wraps 50 to 60% disease. Given neurologic exam I do not feel that repeat is needed. Patient treated with IV fluids. Exact cause of symptoms is unclear. Patient is not low risk for syncope by risk stratification and I offered I discussed disposition options. Patient prefers outpatient management and plans to follow-up with vascular surgery. The results of ED evaluation were discussed with the patient including prescriptions and/or symptomatic cares (if applicable) including appropriate and responsible use, followup plan, and return precautions. The patient verbalized understanding and felt safe for discharge. Medical Records I reviewed the patient's medical records. Lab Data I reviewed the patient's lab results. 10/05/22 02:49 10/05/22 02:49 Radiology Impressions Chest X-Ray 10/05/22 02:55 IMPRESSION: Chronic findings above with no consolidation or evidence of CHF. Head CT 10/05/22 02:55 IMPRESSION: 1. No acute intracranial abnormality. 2. Mild age-related changes. Laboratory Results WBC 8.4 10^3/uL (4.0-10.0) 10/05/22 02:49 RBC 4.26 10^6/uL (4.1-5.3) 10/05/22 02:49 Hgb 13.5 g/dL (11.5-15.3) 10/05/22 02:49 Hct 41.1 % (37.0-47.0) 10/05/22 02:49 MCV 96.5 fl (81-99) 10/05/22 02:49 MCH 31.7 pg (28.0-34.0) 10/05/22 02:49 MCHC 32.8 g/dL (30.0-36.0) 10/05/22 02:49 RDW 13.0 % (12.1-15.1) 10/05/22 02:49 Plt Count 193 10^3/cmm (130-400) 10/05/22 02:49 MPV 11.0 fL (7.4-10.4) H 10/05/22 02:49 Neut % (Auto) 54.1 % 10/05/22 02:49 Lymph % (Auto) 33.3 % 10/05/22 02:49 [place] % (Auto) 9.2 % 10/05/22 02:49 Eos % (Auto) 2.5 % 10/05/22 02:49 Baso % (Auto) 0.7 % 10/05/22 02:49 Neut # (Auto) 4.54 10^3/uL (1.8-7.7) 10/05/22 02:49 Lymph # (Auto) 2.8 10^3/uL (0.8-4.8) 10/05/22 02:49 [place] # (Auto) 0.8 10^3/uL (0.2-0.9) 10/05/22 02:49 Eos # (Auto) 0.2 10^3/uL (0.0-0.8) 10/05/22 02:49 Baso # (Auto) 0.1 10^3/uL (0.0-0.1) 10/05/22 02:49 Nucleated RBC % (auto) 0 % 10/05/22 02:49 Nucleated RBCs # 0.0 /100WBC 10/05/22 02:49 Sodium 143 mmol/L (136-145) 10/05/22 02:49 Potassium 4.1 mmol/L (3.5-5.1) 10/05/22 02:49 Chloride 108 mmol/L (98-107) H 10/05/22 02:49 Carbon Dioxide 23 mmol/L (22-29) 10/05/22 02:49 Anion Gap 16.1 (5-19) 10/05/22 02:49 BUN 11 mg/dL (8-23) 10/05/22 02:49 Creatinine 0.6 mg/dL (0.5-0.9) 10/05/22 02:49 GFR Calculation 99.4 mL/min (90-130) 10/05/22 02:49 Glucose 107 mg/dL (65-115) 10/05/22 02:49 Calculated Osmolality 296 mOsm/kg (285-295) H 10/05/22 02:49 Calcium 8.6 mg/dL (8.5-10.5) 10/05/22 02:49 Magnesium 2.2 mg/dL (1.7-2.3) 10/05/22 02:49 Total Bilirubin 0.3 mg/dL (0.15-1.2) 10/05/22 02:49 AST 18 U/L (0-32) 10/05/22 02:49 ALT 14 U/L (0-33) 10/05/22 02:49 Alkaline Phosphatase 77 U/L (35-105) 10/05/22 02:49 Troponin T Baseline 10 ng/L (0-10) 10/05/22 02:49 Troponin T 120 Minute 8.95 ng/L (0-10) 10/05/22 04:51 Delta Troponin T -1.05 ABS# (0-10) L 10/05/22 04:51 NT-Pro-B Natriuret Pep 318 pg/mL (0-125) H 10/05/22 02:49 Total Protein 6.3 g/dL (6.6-8.7) L 10/05/22 02:49 Albumin 4.2 g/dL (3.5-5.2) 10/05/22 02:49 Globulin 2.1 g/dL (1.3-4.6) 10/05/22 02:49 TSH 4.44 uIU/mL (0.27-4.20) H 10/05/22 02:49 Free T4 1.51 ng/dL (0.82-1.77) 10/05/22 02:49 Urine Color Yellow (Yellow) 10/05/22 03:08 Urine Appearance Clear (CLEAR) 10/05/22 03:08 Urine pH 6 (5-7) 10/05/22 03:08 Ur Specific [place] 1.015 (1.005-1.030) 10/05/22 03:08 Urine Protein Neg (Negative) 10/05/22 03:08 Urine Glucose (UA) Norm (Normal) 10/05/22 03:08 Urine Ketones 1+ (Negative) H 10/05/22 03:08 Urine Blood Neg (Negative) 10/05/22 03:08 Urine Nitrate Negative (Negative) 10/05/22 03:08 Urine Bilirubin Neg (Negative) 10/05/22 03:08 Urine Urobilinogen Neg mg/dL (Negative) 10/05/22 03:08 Ur Leukocyte Esterase Trace (Negative) H 10/05/22 03:08 Urine RBC 0-4 /hpf (0-2) H 10/05/22 03:08 Urine WBC 0-4 /hpf (0-5) H 10/05/22 03:08 Ur Squamous Epith Cells 0-4 /hpf (0-5) H 10/05/22 03:08 Amorphous Sediment Not Reportable 10/05/22 03:08 Urine Bacteria None /hpf (NONE) 10/05/22 03:08 Discharge Plan Discharge Patient Disposition: Home Clinical Impression: Syncope, Orthostatic hypotension, Mild dehydration Condition: Stable Prescriptions: No Action trazodone 100 mg tablet 50 mg PO DAILY Prolia 60 mg/mL syringe SUBCUT Rx Instructions: Twice a year Ocuvite Eye Plus Multi 200-15-150 mcg tablet 1 tab PO DAILY Rx Instructions: administer with a meal and a large glass of water lubiprostone [Amitiza] 24 mcg capsule 48 mcg PO DAILY rosuvastatin 10 mg tablet 10 mg PO DAILY clopidogrel [Plavix] 75 mg tablet 75 mg PO DAILY apple cider vinegar gummy PO DAILY Discharge Orders: Discharge ED (Routine); Ordered 10/05/22 Ordered By: Mathieu Lee Referrals: Violette Molina PA [Primary Care Provider] - Discharge Diet: Usual diet Discharge Activity: Increase activity as tolerated Patient Instructions: Syncope (ED), Hypotension (ED), Opioid Safety, Pain Management Activity Restrictions/Additional Instructions: Thank you for visiting the emergency department. You were seen and evaluated for episode of syncope. The exact cause of your symptoms is unclear. It may be related to mild dehydration and orthostatic hypotension. Please ensure that you are staying hydrated. Please follow-up with your primary care provider and vascular surgeon. Return for recurrent symptoms, any chest pain or shortness of breath, any new neurologic symptoms, or anything else that you are concerned about and feel needs emergency department evaluation. Coding Level of Care Code ED Wire Communications Engineer for Jeri Mittal
--- NOTE | 2022-10-05 02:55 | XRR_ITS ---
PROCEDURE INFORMATION: Exam: XR Chest Exam date and time: 10/05/2022 3:16 AM Age: 67 years old Clinical indication: Other: Syncope TECHNIQUE: Imaging protocol: Radiologic exam of the chest. Views: 1 view. COMPARISON: CT angio headneck* [id number] 07/23/2022 1:49 PM FINDINGS: Lungs: Mpla-ah-gyyrsiqc COPD. Lung base atelectasis or scarring. No consolidation. Pleural spaces: Unremarkable. No pleural effusion. No pneumothorax. Heart/Mediastinum: Heart is mildly enlarged. Vasculature: Advanced diffuse vascular calcification noted. Bones/joints: Unremarkable. XR/XR chest 1V portable [id number] IMPRESSION: Chronic findings above with no consolidation or evidence of CHF.
--- NOTE | 2022-10-05 02:55 | CTR_ITS ---
PROCEDURE INFORMATION: Exam: CT Head Without Contrast Exam date and time: 10/05/2022 3:20 AM Age: 67 years old Clinical indication: Syncope and collapse TECHNIQUE: Imaging protocol: Computed tomography of the head without contrast. Radiation optimization: All CT scans at this facility use at least one of these dose optimization techniques: automated exposure control; mA and/or kV adjustment per patient size (includes targeted exams where dose is matched to clinical indication); or iterative reconstruction. REPORTING DATA: Count of CT and Cardiac NM exams in prior 12 months: This patient has received [address] and 0 known cardiac nuclear medicine studies in the 12 months prior to the current study. COMPARISON: CT angio headneck* [id number] 07/23/2022 1:49 PM RADIATION DOSE METRICS: Total DLP (mGy-cm): 1096.46 FINDINGS: Brain: No focal hemorrhage or midline shift is identified. The ventricles and parenchyma show at least mild atrophy and chronic bicerebral white matter ischemic change. Cerebral ventricles: No ventriculomegaly or evidence of hydrocephalus. Paranasal sinuses: No evidence of acute sinusitis. Mastoid air cells: Visualized mastoid air cells are well aerated. Bones/joints: No displaced skull fracture is noted. Soft tissues: Unremarkable. Vasculature: Diffuse vascular calcifications are present. CT/CT head wo con* [id number] IMPRESSION: 1. No acute intracranial abnormality. 2. Mild age-related changes.
--- NOTE | 2022-10-05 02:56 | ECG_ITS ---
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 Measurements Intervals [place] Rate: 58 P: 70 ID: 134 QRS: 75 QRSD: 98 T: 97 QT: 464 QTc: 457 Interpretive Statements SINUS BRAD[address]IA ST DEVIATION AND MODERATE T-WAVE ABNORMALITY, CONSIDER ANTEROLATERAL ISCHEMIA [-0.1+ mV T-WAVE IN V3-V6] No previous ECG available for comparison Electronically Signed On 10-05-2022 8:28:50 CDT by Joe Campos M.D. [email or web address] With Mecleveland clinic avon [facility].[employer]/store/OM/[id number]
[2022-10-05 03:00] LABS: Basophils # 0.1 10^3/uL (0.0-0.1); Basophils % 0.7 %; Eosinophils # 0.2 10^3/uL (0.0-0.8); Eosinophils % 2.5 %; Hematocrit 41.1 % (37.0-47.0); Hemoglobin 13.5 g/dL (11.5-15.3); Lymphocytes # 2.8 10^3/uL (0.8-4.8); Lymphocytes % 33.3 %; Mean Corpuscular HGB Conc 32.8 g/dL (30.0-36.0); Mean Corpuscular Hemoglobin 31.7 pg (28.0-34.0); Mean Corpuscular Volume 96.5 fl (81-99); Monocytes # 0.8 10^3/uL (0.2-0.9); Monocytes % 9.2 %; Neutrophils # 4.54 10^3/uL (1.8-7.7); Neutrophils % 54.1 %; Nucleated Red Blood Cells % 0 %; Platelet Count 193 10^3/cmm (130-400); Red Blood Count 4.26 10^6/uL (4.1-5.3); White Blood Count 8.4 10^3/uL (4.0-10.0)
[2022-10-05 03:19] LABS: Troponin(5th) Baseline 10 ng/L (0-10)
[2022-10-05 03:26] LABS: Alanine Aminotransferase 14 U/L (0-33); Albumin Level 4.2 g/dL (3.5-5.2); Alkaline Phosphatase 77 U/L (35-105); Anion Gap 16.1 (5-19); Aspartate Amino Transferase 18 U/L (0-32); Blood Urea Nitrogen 11 mg/dL (8-23); Calcium 8.6 mg/dL (8.5-10.5); Carbon Dioxide 23 mmol/L (22-29); Chloride 108 mmol/L (98-107); Globulin 2.1 g/dL (1.3-4.6); Glomerular Filtration Rate 99.4 mL/min (90-130); Glucose 107 mg/dL (65-115); Magnesium 2.2 mg/dL (1.7-2.3); NT Pro B Type Natriuretic Pept 318 pg/mL (0-125); Osmolality Calculated 296 mOsm/kg (285-295); Potassium 4.1 mmol/L (3.5-5.1); Sodium 143 mmol/L (136-145); Thyroid Stimulating Hormone 4.44 uIU/mL (0.27-4.20); Total Bilirubin 0.3 mg/dL (0.15-1.2); Total Protein 6.3 g/dL (6.6-8.7)
[2022-10-05 03:43] LABS: Add Urine Culture? No; Add Urine Microscopic? YES; Bilirubin Urine Neg (Negative); Blood Urine Neg (Negative); Glucose Urine UA Norm (Normal); Ketones Urine 1+ (Negative); Leukocyte Esterase Urine Trace (Negative); Nitrate Urine Negative (Negative); Protein Urine Neg (Negative); RBC Urine 0-4 /hpf (0-2); Specific Gravity, Urine 1.015 (1.005-1.030); Squamous Epithelial Cell Urine 0-4 /hpf (0-5); Urine Appearance Clear (CLEAR); Urine Color Yellow (Yellow); Urobilinogen Urine Neg (Negative); WBC Urine 0-4 /hpf (0-5); pH Urine 6 (5-7)
[2022-10-05 04:26] LABS: Free T4 Free Thyroxine 1.51 ng/dL (0.82-1.77)
[2022-10-05] MEDS: sodium chloride 0.9% 1,000 ML 999 ML IV (04:52)
--- NOTE | 2022-10-05 04:55 | ECG_ITS ---
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 Measurements Intervals [place] Rate: 55 P: 72 NE: 129 QRS: 74 QRSD: 100 T: 130 QT: 483 QTc: 464 Interpretive Statements SINUS BRADYCARDIA ST DEVIATION AND MODERATE T-WAVE ABNORMALITY, CONSIDER ANTEROLATERAL ISCHEMIA [-0.1+ mV T-WAVE IN V3-V6] Compared to ECG 10/05/2022 02:58:55 No significant changes Electronically Signed On 10-05-2022 8:30:31 CDT by Joe Campos M.D. [email or web address] BioSciencesoceans behavioral hospital biloxiGentronixparkview health bryan hospital.[employer]/store/NU/[id number] f
[2022-10-05 05:10] LABS: Troponin 5 2HR 8.95 ng/L (0-10)
[2022-10-05 05:29] LABS: Troponin 5 2HR Delta -1.05 ABS# (0-10)
--- NOTE | 2022-10-05 06:11 | PC.NURSE ---
patient able to ambulate without assistance and denies dizziness, lightheadedness.
== END 2022-10-05 06:40 | disposition home or self-care (01) ==
PROVIDERS: Emergency Provider Emergency Medicine; PCP Physician Assistant
DX: I95.1 Orthostatic hypotension (principal); R00.1 Bradycardia, unspecified; E86.0 Dehydration
CPT/HCPCS: 70450; 71045; 80053; 81001; 83735; 83880; 84439; 84443; 84484; 85025; 93005; 96360; 96361; 99285; J7030

== ENCOUNTER 2023-01-27 08:14 | Oncology outpatient (recurring) (ONCR) | payer MEDICARE, OTHER, SELFPAY ==
[2023-01-27 08:20] VITALS: BP 116/59; PULSE 71; RESP 16; TEMP 36.3; O2SAT 99
[2023-01-27] MEDS: denosumab 60 mg SDV SUBCUT (08:28)
[2023-01-27 08:35] VITALS: BP 116/59; PULSE 71; RESP 16; TEMP 36.3; O2SAT 99
== END 2023-02-01 23:59 | disposition home or self-care (01) ==
LOC: ONCMED 08:15
PROVIDERS: PCP Physician Assistant; Visit Provider Internal Medicine
DX: M81.0 Age-related osteoporosis without current pathological fracture (principal)
CPT/HCPCS: 96372; J0897

== ENCOUNTER → 2023-04-14 14:59 | Outpatient (BNVA) | payer MEDICARE, OTHER, SELFPAY | PROVIDERS: PCP Physician Assistant; Visit Provider Thoracic Surgery (Cardiothoracic Vascular Surgery) | DX: I65.23 Occlusion and stenosis of bilateral carotid arteries (principal); I77.1 Stricture of artery; F17.210 Nicotine dependence, cigarettes, uncomplicated | CPT/HCPCS: 99204 ==

== ENCOUNTER 2023-04-27 08:00 | Outpatient (CLI) | payer MEDICARE, OTHER, SELFPAY ==
--- NOTE | 2023-04-27 08:30 | USCV_ITS ---
Sabrina Bates Age: 67 Gender: F : 1955 Exam Date: 04/27/2023 08:13 Ordering Phys: Montrell Wren MD (Andy) ([email or web address] [place]) Technologist: JACK [place] [facility] [place]ication: EVAL FOR CAROTID STENOSIS Risk Factors: Previous Vascular Surgery: Right Brachial BP: / Left Brachial BP: / Right Left Velocity (cm/s) Spectral Plaque Velocity (cm/s) Spectral Plaque Syst/Diast Broadening Syst/Diast Broadening 111.40/30.90 Prox CCA 103.60/ 27.60 76.10/ 30.40 Mid CCA 94.20 / 28.80 54.30/ 21.40 Distal CCA 82.70 / 30.80 57.70/ 31.50 Prox ICA 111.00/ 29.00 58.20/ 32.60 Mid ICA 140.30/ 38.90 38.10/ 21.20 Distal ICA 105.60/ 31.30 90.10 ECA 65.30 0.52 ICA/CCA 1.35 Antegrade Vertebral Antegrade 10.10/ 9.10 cm/s 83.80/ 26.50 cm/s Tri Subclavian Tri 55.90 176.9 0 CONCLUSIONS Right ICA stenosis <50%. Moderate atheromatous plaque right carotid bulb/ICA. Left ICA stenosis <50%. Mild atheromatous plaque left carotid bulb/ICA. Intimal thickening in the common carotid arteries and internal carotid arteries bilaterally. Normal antegrade Doppler flow noted in the right vertebral artery. Normal antegrade Doppler flow noted in the left vertebral artery. Laureano Loja MD (Electronically Signed) Final Date: 27 April 2023 09:29 S
== END 2023-04-27 08:01 | disposition home or self-care (01) ==
LOC: RAD 08:00
PROVIDERS: PCP Physician Assistant; Visit Provider Thoracic Surgery (Cardiothoracic Vascular Surgery)
DX: I65.23 Occlusion and stenosis of bilateral carotid arteries (principal)
CPT/HCPCS: 93880

== ENCOUNTER 2023-04-28 09:59 | Outpatient (CLI) | payer MEDICARE, OTHER, SELFPAY ==
--- NOTE | 2023-04-28 10:30 | CT_ITS ---
WS: [id number] CTA THORACIC AORTA WITH AND WITHOUT CONTRAST HISTORY: subclavian stenosis TECHNIQUE: CT imaging of the thorax is performed with and without contrast. After noncontrast imaging is performed, CT angiogram is performed during injection of Omnipaque 350; 100 mL IV.. Sagittal and coronal reconstructions, sagittal and coronal MIP imaging is submitted. All CT scans at [facility] use at least one of these dose optimization techniques: automated exposure control; mA and/or k V adjustment per patient size (includes targeted exams where dose is matched to clinical indication); or iterative reconstruction. DLP: 666.19 mGy.cm COMPARISON: None available. Extensive calcified plaque throughout the thoracic aorta extending into the proximal great vessels in the subclavian arteries. There is a very high-grade stenosis involving the proximal brachiocephalic trunk. There is near compl ete occlusion. Stenosis estimated at least 80% extending over a length of 6 mm. Additional scattered plaque is calcified involving the proximal RIGHT subclavian artery. Stenosis at 50% but no high-grade stenosis. The origin of the RIGHT carotid artery is normal. There is plaque at the origin LEFT carot id artery with stenosis estimated at 50%. Additional plaque in the proximal LEFT subclavian artery. T here is a focal stenosis 1.7 cm from the origin estimated at 50%. Normal size pulmonary artery. No filling defects. Mild LEFT heart enlargement. No pericardial or pleu ral effusions. Nodularity and pleural thickening at the apices is similar to 07/23/2022. Chronic emphy sema. No adenopathy. There is extensive calcified plaque in the suprarenal aorta with extension into the mesenteric arteries. Small hiatal hernia. IMPRESSION: 1. High-grade stenosis involving the proximal brachiocephalic trunk stenosis estimated at 80% extend ing over a length of 6 mm. 2. Additional plaque in the proximal RIGHT subclavian artery with stenosis approaching 50%. No occlu nayla. 3. Plaque at the origin of the LEFT carotid artery estimated stenosis 50%. 4. Plaque in the proximal LEFT subclavian artery. Focal stenosis estimated at 50%. 5. Patient has extensive plaque within the suprarenal and thoracic aorta more than expected for this patient's age. 6. LEFT heart enlargement.
[2023-04-28 10:47] LABS: Blood Urea Nitrogen 7 mg/dL (8-23); Glomerular Filtration Rate 83.2 mL/min (90-130)
[2023-04-28] MEDS: iohexol 350 mg/mL 500 mL Btl (per mL) IV (11:02)
== END 2023-04-28 10:00 | disposition home or self-care (01) ==
LOC: RAD 10:00
PROVIDERS: PCP Physician Assistant; Visit Provider Thoracic Surgery (Cardiothoracic Vascular Surgery)
DX: I70.8 Atherosclerosis of other arteries (principal); I65.22 Occlusion and stenosis of left carotid artery; I70.0 Atherosclerosis of aorta; I51.7 Cardiomegaly
CPT/HCPCS: 71275; 82565; 84520; Q9967

== ENCOUNTER → 2023-05-16 14:33 | Outpatient (BNVA) | payer MEDICARE, OTHER, SELFPAY | PROVIDERS: PCP Physician Assistant; Visit Provider Thoracic Surgery (Cardiothoracic Vascular Surgery) | DX: I70.8 Atherosclerosis of other arteries (principal); F17.210 Nicotine dependence, cigarettes, uncomplicated | CPT/HCPCS: 99212 ==

== ENCOUNTER 2023-05-24 08:17 | Emergency (ER) | payer MEDICARE, OTHER, SELFPAY ==
[2023-05-24 08:23] VITALS: BP 182/91; PULSE 78; RESP 16; TEMP 36.5; O2SAT 100; BMI 22.3
--- NOTE | 2023-05-24 08:25 | XRR_ITS ---
PROCEDURE INFORMATION: Exam: XR Chest Exam date and time: 05/24/2023 8:44 AM Age: 67 years old Clinical indication: Cough and dyspnea; Additional info: Dyspnea/cough TECHNIQUE: Imaging protocol: Radiologic exam of the chest. Views: 1 view. COMPARISON: CT angio chest [id number] 04/28/2023 10:50 AM FINDINGS: Lungs: There is no consolidation. Pleural spaces: There is no pleural effusion or pneumothorax. Heart/Mediastinum: Cardiomediastinal contours are unremarkable. Bones/joints: Bones are unremarkable. XR/XR chest 1V portable [id number] IMPRESSION: No acute findings.
--- NOTE | 2023-05-24 08:31 | ECG_ITS ---
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 Measurements Intervals [place] Rate: 68 P: 61 MN: 130 QRS: 58 QRSD: 99 T: 27 QT: 394 QTc: 421 Interpretive Statements SINUS RHYTHM ST DEVIATION AND MODERATE T-WAVE ABNORMALITY, CONSIDER LATERAL ISCHEMIA [-0.1+ mV T-WAVE IN I/aVL/V5/V6] Compared to ECG 10/05/2022 04:55:36 Sinus bradycardia no longer present T-wave abnormality still present Possible ischemia still present Electronically Signed On 05-24-2023 9:44:10 CREATIVE COORDINATOR by Joe Campos M.D. [email or web address] eCommercemendocino coast district hospital.Flicstart/store/OM/[id number]
--- NOTE | 2023-05-24 08:43 | ED_ITS ---
HPI - Extremity Problem 2 General: Chief complaint: Extremity Injury, Upper Stated complaint: left arm pain, weakness, sweating Time Seen by Provider: 05/24/23 08:19 Source: patient Mode of arrival: ambulatory History of Present Illness: 67-year-old female who presents to the e mergency room with complaints of left arm pain. 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 She has been referred for endovascular stenting. She states she has left arm pain today no chest pain she was little diaphoretic and nauseous somewhat dyspneic with this earlier. She has had a couple of syncopal episodes associated with this stenosis. She has no known coronary artery disease she is on Plavix. She has some vertebral and internal carotid stenosis also had a TIA. No traumatic injury to the left shoulder. MD Complaint: extremity pain Onset (ago): hour(s) Pain Consistency: constant Location: left and upper extremity Relieving factors: nothing Exacerbating factors: nothing Associated symptoms: Deny arthralgias, chest pain, fever(s), myalgias, rash or short of breath Review of Systems 2 Const: Denies: fever(s) Card: Denies: chest pain Resp: Denies: dyspnea GI: Denies: abdominal pain : Denies: dysuria, urinary frequency or urinary urgency Musc: Denies: neck pain or back pain Skin/Breast: Denies: rash PFSH ED 2 PFSH: Medical History Carotid artery stenosis, asymptomatic PAD (peripheral artery disease) High risk medication use Osteoporosis Plaque psoriasis Psoriasis Constipation Hx of thoracic outlet syndrome Surgical History Hx of cholecystectomy Hx of appendectomy H/O tubal ligation Family History Other CAD (coronary artery disease) Social History Smoking and tobacco/nicotine status: current every day tobacco/nicotine user cigarettes Packs smoked per day: 0.5 Alcohol intake: never Substance/Drug Use: never Current occupational status: retired Physical Exam 2 Const: GENERAL APPEARANCE: cooperative and comfortable O RIENTATION/CONSCIOUSNESS: Yes awake, Yes oriented to person, Yes oriented to place and Yes oriented to time HENMT: COMMON NORMALS: normocephalic, atraumatic and hearing grossly normal bilaterally HEAD & SCALP: normocephalic and atraumatic Resp: COMMON NORMALS: normal respiratory effort, No retractions, No use of accessory muscles and clear to auscultation bilaterally AUSCULTATION: clear to auscultation bilaterally Cardio: COMMON NORMALS: regular rate, regular rhythm and No murmurs present (Cardio) RATE: regular rate RHYTHM: regular rhythm GI: COMMON NORMALS: Soft to palpation and No hepatosplenomegaly present A USCULTATION: Yes normoactive bowel sounds PALPATION: Yes Soft to palpation, No Tenderness to palpation present (GI), No Guarding due to palpation present (GI) and Yes No hepatosplenomegaly present Extremity: COMMON NORMALS: normal to inspection, capillary refill normal, no clubbing, cyanosis or edema, no calf tenderness and no pedal edema OTHER: Decreased radial pulse on the right compared to the left. No pain with range of motion of the left shoulder Neuro: SENSORIUM/ORIENTATION: Yes oriented to person, Yes oriented to place and Yes oriented to time Skin: COMMON NORMALS: no rashes or lesions noted GENERAL SKIN EXAM: no rashes or lesions noted Course 2 Vital Signs: Vital signs: Vital Signs Temperature 97.7 F 05/24/23 08:23 Pulse Rate 64 05/24/23 11:30 Respiratory Rate 19 H 05/24/23 11:30 Blood Pressure 182/91 05/24/23 08:23 Pulse Oximetry 100 05/24/23 11:30 Oxygen Delivery Me thod Room Air 05/24/23 11:30 MDM - Extremity (Nontraumatic) Medical Decision Making Left shoulder pain is improved cardiac enzymes negative. Somewhat reproducible palpation and range of motion x-ray does not show any acute fracture. Discharge patient home continue current medications. I do not believe the stenosis that she has in the subclavian system is contributing to this systemic is more likely musculoskeletal she has any change or worsening return Medical Records I reviewed the patient's medical records. Lab Data I reviewed the patient's lab results. 05/24/23 08:45 05/24/23 08:45 Radiology Impressions Chest X-Ray 05/24/23 08:25 IMPRESSION: No acute findings. Shoulder X-Ray 05/24/23 11:35 IMPRESSION: No acute findings. Laboratory Results WBC 7.94 10^3/uL (3.29-11.43) 05/24/23 08:45 RBC 4.35 10^6/uL (3.85-5.65) 05/24/23 08:45 Hgb 13.90 g/dL (11.27-16.99) 05/24/23 08:45 Hct 41.7 % (36-47) 05/24/23 08:45 MCV 95.9 fl (85-98) 05/24/23 08:45 MCH 32.0 pg (27-33) 05/24/23 08:45 MCHC 33.3 g/dL (30-55) 05/24/23 08:45 RDW 13.2 % (12.1-15.1) 05/24/23 08:45 Plt Count 201 10^3/cmm (157-399) 05/24/23 08:45 MPV 11.1 fL (7.4-10.4) H 05/24/23 08:45 Neut % (Auto) 58.3 % 05/24/23 08:45 Lymph % (Auto) 29.8 % 05/24/23 08:45 Cataño % (Auto) 9.1 % 05/24/23 08:45 Eos % (Auto) 1.8 % 05/24/23 08:45 Baso % (Auto) 0.6 % 05/24/23 08:45 Neut # (Auto) 4.63 10^3/uL (1.8-7.7) 05/24/23 08:45 Lymph # (Auto) 2.4 10^3/uL (0.8-4.8) 05/24/23 08:45 Cataño # (Auto) 0.7 10^3/uL (0.2-0.9) 05/24/23 08:45 Eos # (Auto) 0.1 10^3/uL (0.0-0.8) 05/24/23 08:45 Baso # (Auto) 0.1 10^3/uL (0.0-0.1) 05/24/23 08:45 Nucleated RBC % (auto) 0 % 05/24/23 08:45 Nucleated RBCs # 0.0 /100WBC 05/24/23 08:45 Sodium 141 mmol/L (136-145) 05/24/23 08:45 Potassium 4.2 mmol/L (3.5-5.1) 05/24/23 08:45 Chloride 103 mmol/L (98-107) 05/24/23 08:45 Carbon Dioxide 26 mmol/L (22-29) 05/24/23 08:45 Anion Gap 16.2 (5-19) 05/24/23 08:45 BUN 7 mg/dL (8-23) L 05/24/23 08:45 Creatinine 0.6 mg/dL (0.5-0.9) 05/24/23 08:45 GFR Calculation 99.4 mL/min (90-130) 05/24/23 08:45 Glucose 102 mg/dL (65-115) 05/24/23 08:45 Calculated Osmolality 290 mOsm/kg (285-295) 05/24/23 08:45 Calcium 8.7 mg/dL (8.5-10.5) 05/24/23 08:45 Total Bilirubin 0.3 mg/dL (0.15-1.2) 05/24/23 08:45 AST 21 U/L (0-32) 05/24/23 08:45 ALT 18 U/L (0-33) 05/24/23 08:45 Alkaline Phosphatase 79 U/L (35-105) 05/24/23 08:45 Troponin T Baseline 10 ng/L (0-10) 05/24/23 08:45 Troponin T 120 Minute 10.68 ng/L (0-10) H 05/24/23 10:54 Delta Troponin T 0.68 ABS# (0-10) 05/24/23 10:54 Total Protein 6.8 g/dL (6.6-8.7) 05/24/23 08:45 Albumin 4.3 g/dL (3.5-5.2) 05/24/23 08:45 Globulin 2.5 g/dL (1.3-4.6) 05/24/23 08:45 All radiology interpretation(s) finalized by discharge Discharge Plan Discharge Patient Disposition: Home Clinical Impression: Acute pain of left shoulder, Subclavian artery stenosis, right, PAD (peripheral artery disease) Condition: Stable Prescriptions: New diclofenac sodium 75 mg tablet,delayed release (DR/EC) 75 mg PO Q12H PRN (Reason: pain) Qty: 20 0RF No Action trazodone 100 mg tablet 50 mg PO DAILY Prolia 60 mg/mL syringe SUBCUT Rx Instructions: Twice a year Ocuvite Eye Plus Multi 200-15-150 mcg tablet 1 tab PO DAILY Rx Instructions: administer with a meal and a large glass of water Otezla 30 mg tablet 30 mg PO BID lubiprostone [Amitiza] 24 mcg capsule 48 mcg PO DAILY rosuvastatin 10 mg tablet 10 mg PO DAILY clopidogrel [Plavix] 75 mg tablet 75 mg PO DAILY Discharge Orders: Discharge ED (Routine); Ordered 05/24/23 Ordered By: Pranay Diamond Referrals: Violette Molina PA [Primary Care Provider] - Discharge Diet: Usual diet Discharge Activity: Increase activity as tolerated Patient Instructions: Opioid Safety, Pain Management Activity Restrictions/Additional Instructions: Thank you for choosing [facility] for your healthcare needs today. Please realize this is an emergency room and that we are providing you with a medical screening exam and this may not be complete and all inclusive of all the testing and or work up that you may need to determine your ailment or severity of your illness. It is very important that you follow up as instructed or that you return to the Emergency Department should you have concerns or if your condition changes or worsens in any way. You are seen today for left shoulder pain your cardiac enzymes and EKG did not show any acute changes. Suspect this is more musculoskeletal have you follow- up with Dr. Lua as previously scheduled if pain persist recheck with your primary care doctor Coding Level of Care Code ED Plastics Repairer for Jeri Mittal
[2023-05-24] MEDS: aspirin 81 mg Chew Tablet 324 MG PO (08:48)
[2023-05-24 08:58] LABS: Basophils # 0.1 10^3/uL (0.0-0.1); Basophils % 0.6 %; Eosinophils # 0.1 10^3/uL (0.0-0.8); Eosinophils % 1.8 %; Hematocrit 41.7 % (36-47); Lymphocytes # 2.4 10^3/uL (0.8-4.8); Lymphocytes % 29.8 %; Mean Corpuscular HGB Conc 33.3 g/dL (30-55); Mean Corpuscular Volume 95.9 fl (85-98); Mean Platelet Volume 11.1 fL (7.4-10.4); Monocytes # 0.7 10^3/uL (0.2-0.9); Monocytes % 9.1 %; Neutrophils # 4.63 10^3/uL (1.8-7.7); Neutrophils % 58.3 %; Nucleated Red Blood Cells % 0 %; Platelet Count 201 10^3/cmm (157-399); Red Blood Count 4.35 10^6/uL (3.85-5.65); Red Cell Distribution Width 13.2 % (12.1-15.1); White Blood Count 7.94 10^3/uL (3.29-11.43)
[2023-05-24 09:11] LABS: Alanine Aminotransferase 18 U/L (0-33); Albumin Level 4.3 g/dL (3.5-5.2); Alkaline Phosphatase 79 U/L (35-105); Anion Gap 16.2 (5-19); Aspartate Amino Transferase 21 U/L (0-32); Blood Urea Nitrogen 7 mg/dL (8-23); Calcium 8.7 mg/dL (8.5-10.5); Carbon Dioxide 26 mmol/L (22-29); Chloride 103 mmol/L (98-107); Globulin 2.5 g/dL (1.3-4.6); Glomerular Filtration Rate 99.4 mL/min (90-130); Glucose 102 mg/dL (65-115); Osmolality Calculated 290 mOsm/kg (285-295); Potassium 4.2 mmol/L (3.5-5.1); Sodium 141 mmol/L (136-145); Total Bilirubin 0.3 mg/dL (0.15-1.2); Total Protein 6.8 g/dL (6.6-8.7)
[2023-05-24 09:12] LABS: Troponin(5th) Baseline 10 ng/L (0-10)
[2023-05-24 10:00] VITALS: PULSE 67; RESP 20; O2SAT 100
--- NOTE | 2023-05-24 10:43 | ECG_ITS ---
[facility] Test Date: 2023-05-24 Pat Name: Sabrina Bates Department: Room: Gender: Female Para Professional: : 1955 Requested By: Pranay Diggs Order Number: [id number] Gideon MD: Joe Campos M.D. Measurements Intervals [place] Rate: 60 P: 62 MI: 126 QRS: 51 QRSD: 105 T: 55 QT: 443 QTc: 444 Interpretive Statements SINUS RHYTHM ST DEVIATION AND MODERATE T-WAVE ABNORMALITY, CONSIDER LATERAL ISCHEMIA [-0.1+ mV T-WAVE IN I/aVL/V5/V6] Compared to ECG 05/24/2023 08:31:49 No significant changes Electronically Signed On 05-24-2023 11:51:01 INDUSTRIAL ORGANIZATIONAL PSYCHOLOGIST by Joe Campos M.D. [email or web address]
[2023-05-24 11:00] VITALS: PULSE 67; RESP 19; O2SAT 100
[2023-05-24 11:25] LABS: Troponin 5 2HR 10.68 ng/L (0-10); Troponin 5 2HR Delta 0.68 ABS# (0-10)
[2023-05-24 11:30] VITALS: PULSE 64; RESP 19; O2SAT 100
--- NOTE | 2023-05-24 11:35 | XRR_ITS ---
PROCEDURE INFORMATION: Exam: XR Left Shoulder Exam date and time: 05/24/2023 11:48 AM Age: 67 years old Clinical indication: Pain; Shoulder; Left TECHNIQUE: Imaging protocol: Radiologic exam of the left shoulder. Views: 2 or more views. COMPARISON: CR XR chest 1V portable [id number] 05/24/2023 8:44 AM FINDINGS: Bones/joints: Glenohumeral and acromioclavicular alignment are normal. No acute fracture. Joint spaces are poorly evaluated without Grashey or axillary views. There is mild AC joint arthritis. No glenohumeral osteophytes. Soft tissues: Unremarkable. XR/XR shoulder LT min 2V* [id number] IMPRESSION: No acute findings.
== END 2023-05-24 12:17 | disposition home or self-care (01) ==
PROVIDERS: Emergency Provider Family Medicine; PCP Physician Assistant
DX: M25.512 Pain in left shoulder (principal); I70.208 Unspecified atherosclerosis of native arteries of extremities, other extremity; I73.9 Peripheral vascular disease, unspecified; Z79.02 Long term (current) use of antithrombotics/antiplatelets; F17.210 Nicotine dependence, cigarettes, uncomplicated
CPT/HCPCS: 36415; 71045; 73030; 80053; 84484; 85025; 93005; 99285

== ENCOUNTER 2023-07-29 08:45 | Oncology outpatient (recurring) (ONCR) | payer MEDICARE, OTHER, SELFPAY ==
--- NOTE | 2023-07-20 12:46 | XR_ITS ---
WS: [id number] DEXA (DUAL ENERGY X-RAY ABSORPTIOMETRY) Bone mineral density was performed using a [employer] machine. HISTORY: OSTEOPOROSIS COMPARISON: 03/06/2018 Lumbar spine BMD (L1-L4): 1.052 g/cm2 T score: -1.1 Z score: 0.6 Total hip BMD: Left: 0.763 g/cm2. T score: -1.9 Z score: -0.5 Right: 0.811 g/cm2. T score: -1.6 Z score: -0.1 10 year probability of a major osteoporotic fracture is 20.6%. Compared to the prior study from 03/06/2018. Lumbar spine bone mineral density has increased by 17.1%. Bilateral hips bone mineral density has increased by 2.6%. IMPRESSION: OSTEOPENIA based upon the WHO classification for females. There has been an significant increase in bone mineral density within both the lumbar spine and hips since the prior study.
--- NOTE | 2023-07-20 12:48 | CT_ITS ---
WS: [id number] LDCT LUNG CANCER SCREENING HISTORY: NICOTINE DEPENDENCE,CIGARETTES TECHNIQUE: Axial imaging performed from the apices to 1 cm below the costophrenic angles. Coronal and sagittal reformats are submitted with axial MIP series. All CT scans at [facility] use at least one of these dose optimization techniques: automated exposure control; mA and/or kV adjustment per patient size (includes targeted exams where dose is matched to clinical indication); or iterativ e reconstruction. DLP: 43.51 mGy.cm DIvol: Mean CTDIvol: 0.80 (mGy) COMPARISON: 04/28/2023 Diagnostic quality: Satisfactory Lungs: Mild centrilobular emphysema. Focal scarring and nodularity at the RIGHT apex is similar to 10/10/[address] Subpleural nodule RIGHT lower lobe measures 4 mm and stable since 04/28/2023 and also present on the CT from 04/14/2020. No mass. No pneumonia. No endobronchial lesions. Heart: Normal size heart with no pericardial effusion.. Other findings: Mild atherosclerosis aorta. No aneurysm thoracic aorta. No adenopathy. Mild anterior wedging of T8 and T11 is osteoporotic compression fractures were present on 04/28/2023. IMPRESSION: CT/CT lung screening [id number] LUNG-RADS: 2-Benign Appearance or Behavior FOLLOW UP: 12 Month: Continue annual screening with LDCT OTHER FINDINGS (S MODIFIER): None.
--- NOTE | 2023-07-20 13:14 | MM_ITS ---
WS: [id number] BILATERAL 3D TOMOSYNTHESIS DIGITAL SCREENING MAMMOGRAPHY WITH CAD CLINICAL INFORMATION: SCREENING HISTORY: Screening mammogram. No current complaints. COMPARISON: 08/26/2021 TECHNIQUE: Bilateral CC and MLO views. FINDINGS: Scattered fibroglandular densities bilaterally. No suspicious focal mass, asymmetry, calcifications, or architectural distortion. No evidence of malignancy. Vascular calcification. Incidental punctate a nd lucent centered calcifications. IMPRESSION: MM/[place] [id number] BI-RADS: 2-Benign FOLLOW UP: 1 Year Follow-up Recommend return to annual screening mammography.
[2023-07-29 08:22] VITALS: BP 116/69; PULSE 64; RESP 16; TEMP 36.6; O2SAT 98
[2023-07-29] MEDS: denosumab 60 mg SDV SUBCUT (08:44)
== END 2023-08-02 23:59 | disposition home or self-care (01) ==
PROVIDERS: PCP Physician Assistant; Visit Provider Internal Medicine
DX: M81.0 Age-related osteoporosis without current pathological fracture; Z53.9 Procedure and treatment not carried out, unspecified reason
CPT/HCPCS: 71271; 77063; 77067; 77080; 96372; J0897

== ENCOUNTER 2024-01-25 12:40 | Oncology outpatient (recurring) (ONCR) | payer MEDICARE, OTHER, SELFPAY ==
[2024-01-25] MEDS: denosumab 60 mg SDV SUBCUT (13:01)
[2024-01-25 13:08] VITALS: BP 128/68; PULSE 68; RESP 16; TEMP 36.8
== END 2024-02-02 23:59 | disposition home or self-care (01) ==
PROVIDERS: PCP Physician Assistant; Visit Provider Internal Medicine
DX: M81.0 Age-related osteoporosis without current pathological fracture (principal); Z79.899 Other long term (current) drug therapy
CPT/HCPCS: 96372; J0897

== ENCOUNTER 2024-07-02 06:08 | Outpatient (CLI) | payer MEDICARE, OTHER, SELFPAY ==
--- NOTE | 2024-07-02 06:21 | USCV_ITS ---
Sabrina Bates Age: 69 Gender: F : 1955 Exam Date: 07/02/2024 06:28 Ordering Phys: Violette Molina Technologist: Exam Location[place] [facility] [place]: murmur BP: 120 / 70 HR: 77 Rhythm: Sinus Technical Quality: Adequate MEASUREMENTS (Male / Female) Normal Values 2D ECHO LV Diastolic Diameter PLAX 5.6 cm 4.2 - 5.9 / 3.9 - 5.3 cm IVS Diastolic Thickness 0.9 cm 0.6 - 1.0 / 0.6 - 0.9 cm IVS Systolic Thickness 1.6 cm LVPW Diastolic Thickness 1.1 cm 0.6 - 1.0 / 0.6 - 0.9 cm LVPW Systolic Thickness 1.6 cm LVOT Diameter 2.1 cm LV Ejection Fraction 2D Teich 51.5 % LV Ejection Fraction MOD 4C 49.4 % LV Ejection Fraction MOD 2C 56.8 % LV Ejection Fraction 2C AL 57.5 % LA Diameter 3.9 cm RA Systolic Volume 4C AL 35.2 ml RA Systolic Volume 4C MOD 33.4 ml Aorta at Sinotubular Diameter 2.7 cm M-MODE LA Ao Ratio MM 1.5 AV Cusp Separation MM 1.6 cm DOPPLER AV Peak Velocity 232.0 cm/s LVOT Peak Velocity 92.0 cm/s AV Area Cont Eq vti 1.3 cm squared AV Area Cont Eq pk 1.3 cm squared MV Peak Velocity 134.0 cm/s MV Area PHT 4.1 cm squared Mitral E to A Ratio 0.7 TR Peak Velocity 163.0 cm/s TR Peak Gradient 10.6 mmHg TV Peak E Velocity 74.0 cm/s PV Peak Velocity 91.0 cm/s FINDINGS Left Ventricle Left ventricle is mildly dilated. LV systolic function is borderline normal with EF of 50-55%. No regional wall motion abnormalities. Grade 1 diastolic dysfunction. Right Ventricle Normal in size and function Right Atrium Normal in size Left Atrium Normal in size Mitral Valve Structurally normal mitral valve. Mild to moderate mitral regurgitation Aortic Valve Aortic valve is thickened. Mild aortic stenosis with aortic valve area of 1.24 cm squared and mean gradient of 10 mmHg Tricuspid Valve Mild tricuspid regurgitation. Pulmonic Valve Not well visualized Pericardium Normal Aorta Normal in size IVC Not well visualized CONCLUSIONS Left ventricle is mild dilated. LV systolic function is borderline normal with EF of 50-55% Grade 1 diastolic dysfunction Mild to moderate mitral regurgitation Mild aortic stenosis Mild tricuspid regurgitation Compared to prior echocardiogram from 2022, mild aortic stenosis is seen now. Joe Campos MD (Electronically Signed) Final Date: 11 July 2024 11:25 S
== END 2024-07-02 06:09 | disposition home or self-care (01) ==
PROVIDERS: PCP Physician Assistant; Visit Provider Physician Assistant
DX: R01.1 Cardiac murmur, unspecified (principal); R93.1 Abnormal findings on diagnostic imaging of heart and coronary circulation; I34.0 Nonrheumatic mitral (valve) insufficiency; I35.8 Other nonrheumatic aortic valve disorders; I35.0 Nonrheumatic aortic (valve) stenosis; I07.1 Rheumatic tricuspid insufficiency
CPT/HCPCS: 93306

== ENCOUNTER 2024-07-24 08:48 | Oncology outpatient (recurring) (ONCR) | payer MEDICARE, OTHER, SELFPAY ==
[2024-07-24] MEDS: denosumab 60 mg SDV SUBCUT (09:11)
--- NOTE | 2024-07-24 09:22 | CT_ITS ---
WS: [id number] LDCT LUNG CANCER SCREENING HISTORY: HX OF TOBACCO USE TECHNIQUE: Axial imaging performed from the apices to 1 cm below the costophrenic angles. Coronal and sagittal reformats are submitted with axial MIP series. All CT scans at [facility] use at least one of these dose optimization techniques: automated exposure control; mA and/or kV adjustment per patient size (includes targeted exams where dose is matched to clinical indication); or iterative reconstruction. DLP: 46.42 mGy.cm DIvol: Mean CTDIvol: 1.00 (mGy) COMPARISON: 07/20/2023, 04/28/2023 Diagnostic quality: Satisfactory Lungs: Advanced centrilobular emphysema. Stable pleural thickening and nodularity at the RIGHT apex. No change since 07/23/2022. Peripheral fibrosis throughout each lung. Stable subpleural 5 mm nodule RIGHT lower lobe. No new pulmonary mass or nodule. Areas of groundglass attenuation are stable. No endo bronchial lesions. Heart: Normal size heart with no pericardial effusion.. Other findings: Moderate atherosclerosis thoracic aorta. Calcification extends into the great vessels. Small mediastinal and hilar lymph nodes. Coronary artery calcifications. Small hiatal hernia. Mild osteoporotic compression fractures at T11 and T8. Very minimal anterior wedging of T3. CT/CT lung screening [id number] IMPRESSION: LUNG-RADS: 2-Benign Appearance or Behavior FOLLOW UP: 12 Month: Continue annual screening with LDCT OTHER FINDINGS (S MODIFIER): None.
== END 2024-08-01 23:59 | disposition home or self-care (01) ==
PROVIDERS: PCP Physician Assistant; Visit Provider Internal Medicine
DX: M81.0 Age-related osteoporosis without current pathological fracture (principal); Z79.899 Other long term (current) drug therapy; Z87.891 Personal history of nicotine dependence
CPT/HCPCS: 71271; 96372; J0897

== ENCOUNTER 2025-01-21 13:48 | Oncology outpatient (recurring) (ONCR) | payer MEDICARE, OTHER, SELFPAY ==
[2025-01-21] MEDS: denosumab 60 mg SDV (Infusion Clinic Only) SUBCUT (14:07)
== END 2025-02-01 23:59 | disposition home or self-care (01) ==
PROVIDERS: PCP Physician Assistant; Visit Provider Internal Medicine
DX: M81.0 Age-related osteoporosis without current pathological fracture (principal); Z79.899 Other long term (current) drug therapy
CPT/HCPCS: 96372; J0897